=== PATIENT | female | born 1955 | race African-American/Black ===

== ENCOUNTER 2018-04-18 00:13 | Inpatient (IN) | payer OTHER ==
[2018-04-18] MEDS ORDERED: BISACODYL (EC) 5 MG TAB PO (01:30)
[2018-04-18] MEDS ORDERED: ONDANSETRON 4 MG INJ IV (01:30)
[2018-04-18] MEDS ORDERED: NACL 0.9% 3 ML SYG IV (01:30)
[2018-04-18] MEDS ORDERED: DOCUSATE SODIUM 100 MG CAP PO (01:30)
[2018-04-18 02:35] LABS: ADD MAN DIFF? NO
[2018-04-18 02:43] LABS: WHITE BLOOD COUNT 6.2 10^3/ul (4.8-10.8)
[2018-04-18 02:43] LABS: BASOPHILS % 0.5 % (0.0-2.0); EOSINOPHILS # 0.2 10^3/ul (0.0-0.5); EOSINOPHILS % 2.4 % (0.0-7.0); HEMATOCRIT 29.5 % (37.0-47.0); LYMPHOCYTES # 1.4 10^3/ul (0.8-2.9); LYMPHOCYTES % 23.2 % (15.0-51.0); MEAN CORPUSCULAR HEMOGLOBIN 22.6 pg (29.0-33.0); MEAN CORPUSCULAR HGB CONC 30.5 g/dl (32.0-37.0); MEAN CORPUSCULAR VOLUME 74.1 fl (82.0-101.0); MEAN PLATELET VOLUME 9.2 fl (7.4-10.4); MONOCYTE # 0.5 10^3/ul (0.3-0.9); MONOCYTES % 7.9 % (0.0-11.0); NEUTROPHIL # 4.1 10^3/ul (1.6-7.5); NEUTROPHILS % 65.5 % (39.0-77.0); PLATELET COUNT 230 10^3/UL (140-415); RED BLOOD COUNT 3.98 10^6/ul (4.20-5.40); RED CELL DISTRIBUTION WIDTH 19.4 % (11.5-14.5)
[2018-04-18 02:55] LABS: HEMOGLOBIN A1C 6.1 % (0-5.9)
[2018-04-18 03:06] LABS: ALANINE AMINOTRANSFERASE 24 IU/L (13-69); ALBUMIN/GLOBULIN RATIO 0.83; ALKALINE PHOSPHATASE 87 IU/L (42-121); ANION GAP 8 (8-16); ASPARTATE AMINO TRANSFERASE 26 IU/L (15-46); BILIRUBIN,INDIRECT 0.3 mg/dl (0-1.1); BILIRUBIN,TOTAL 0.3 mg/dl (0.2-1.3); BLOOD UREA NITROGEN 54 mg/dl (7-20); CALCIUM 8.8 mg/dl (8.4-10.2); CARBON DIOXIDE 26 mmol/L (21-31); CHLORIDE 111 mmol/L (97-110); CREATININE 3.23 mg/dl (0.44-1.00); GLUCOSE 97 mg/dl (70-220); SODIUM 141 mmol/L (135-144); TOTAL PROTEIN 6.6 g/dl (6.1-8.1)
[2018-04-18 03:07] LABS: MAGNESIUM 2.2 mg/dl (1.7-2.5)
[2018-04-18 03:10] LABS: ETHANOL < 10.0 mg/dl
[2018-04-18 04:02] LABS: IRON 36 ug/dl (35-150)
[2018-04-18 04:17] LABS: % IRON SATURATION 10 % SAT (22-52); TOTAL IRON BINDING CAPACITY 362 ug/dl (241-421)
[2018-04-18 04:39] LABS: FERRITIN 57.1 ng/ml (11.1-264.0)
[2018-04-18] MEDS: NIFEdipine (XL) 30 MG TAB PO ×2 (09:46→21:44)
[2018-04-18] MEDS: METOPROLOL (XL) 25 MG TAB PO ×2 (09:47→21:44)
[2018-04-19] MEDS: hydrALAzine 20 MG INJ IV (00:49)
[2018-04-19] MEDS: LORAZEPAM 2 MG INJ IV (02:06)
[2018-04-19 06:04] LABS: INR 1.03; PROTIME 13.6 Sec (11.9-14.9); PT RATIO 1.1
[2018-04-19 06:17] LABS: MAGNESIUM 2.4 mg/dl (1.7-2.5)
[2018-04-19 06:17] LABS: ANION GAP 11 (8-16); BLOOD UREA NITROGEN 59 mg/dl (7-20); CALCIUM 9.5 mg/dl (8.4-10.2); CARBON DIOXIDE 25 mmol/L (21-31); CHLORIDE 109 mmol/L (97-110); GLUCOSE 100 mg/dl (70-220); PHOSPHORUS 4.5 mg/dl (2.5-4.9); POTASSIUM 4.3 mmol/L (3.5-5.1); SODIUM 141 mmol/L (135-144)
[2018-04-19 08:25] LABS: ADD MAN DIFF? NO
[2018-04-19 08:27] LABS: ABNORMAL IP MESSAGE 1; BASOPHIL # 0.1 10^3/ul (0.0-0.1); BASOPHILS % 0.6 % (0.0-2.0); EOSINOPHILS # 0.2 10^3/ul (0.0-0.5); EOSINOPHILS % 1.9 % (0.0-7.0); HEMOGLOBIN 9.8 g/dl (12.0-16.0); LYMPHOCYTES # 1.3 10^3/ul (0.8-2.9); LYMPHOCYTES % 15.3 % (15.0-51.0); MEAN CORPUSCULAR HEMOGLOBIN 22.6 pg (29.0-33.0); MEAN CORPUSCULAR HGB CONC 29.7 g/dl (32.0-37.0); MEAN CORPUSCULAR VOLUME 76.2 fl (82.0-101.0); MEAN PLATELET VOLUME 10.9 fl (7.4-10.4); MONOCYTE # 0.7 10^3/ul (0.3-0.9); MONOCYTES % 7.8 % (0.0-11.0); NEUTROPHIL # 6.3 10^3/ul (1.6-7.5); NEUTROPHILS % 73.9 % (39.0-77.0); PLATELET COUNT 208 10^3/UL (140-415); RED BLOOD COUNT 4.33 10^6/ul (4.20-5.40)
[2018-04-19 08:27] LABS: WHITE BLOOD COUNT 8.5 10^3/ul (4.8-10.8)
[2018-04-19 08:51] LABS: POSITIVE DIFF @See below
[2018-04-19] MEDS ORDERED: LISINOPRIL 10 MG TAB PO (09:00)
[2018-04-19] MEDS: LISINOPRIL 10 MG TAB PO ×2 (09:33→22:23)
[2018-04-19] MEDS: NIFEdipine (XL) 30 MG TAB PO ×2 (09:33→22:23)
[2018-04-19] MEDS: METOPROLOL (XL) 25 MG TAB PO ×2 (09:34→22:23)
[2018-04-19] MEDS ORDERED: LOPERAMIDE HCL 1 MG/5 ML LIQUID (10 ML UD CUP) PO (14:00)
[2018-04-19] MEDS: LORAZEPAM 1 MG TAB PO ×2 (14:51→19:18)
[2018-04-19 22:55] LABS: ADD UMIC YES; UR ASCORBIC ACID NEGATIVE (NEGATIVE); UR BILIRUBIN (Dip) NEGATIVE (NEGATIVE); UR BLOOD (Dip) NEGATIVE (NEGATIVE); UR CLARITY CLEAR (CLEAR); UR COLOR YELLOW (YELLOW); UR GLUCOSE (Dip) NEGATIVE (NEGATIVE); UR KETONES (Dip) NEGATIVE (NEGATIVE); UR LEUKOCYTE ESTERASE (Dip) NEGATIVE Leu/ul (NEGATIVE); UR NITRITE (Dip) NEGATIVE (NEGATIVE); UR RBC 1 /HPF (0-5); UR SPECIFIC GRAVITY (Dip) 1.014 (1.003-1.030); UR TOTAL PROTEIN (Dip) 2+ mg/dl (NEGATIVE); UR UROBILINOGEN (Dip) NEGATIVE (NEGATIVE); UR WBC 0 /HPF (0-5)
[2018-04-19 23:11] LABS: AMPHETAMINE/METHAMPHETAMINE Negative (NEGATIVE); BARBITURATES Negative (NEGATIVE); BENZODIAZEPINES Negative (NEGATIVE); CANNABINOIDS Negative (NEGATIVE); OPIATES Negative (NEGATIVE)
[2018-04-19 23:13] LABS: COCAINE Positive (NEGATIVE)
[2018-04-19 23:15] LABS: CREATININE,URINE RANDOM 83.06 mg/dl (20-320)
[2018-04-19 23:16] LABS: PROTEIN/CREAT RATIO 3.37 RATIO
[2018-04-20 07:47] LABS: ADD MAN DIFF? NO
[2018-04-20 07:53] LABS: BASOPHIL # 0.1 10^3/ul (0.0-0.1); BASOPHILS % 0.7 % (0.0-2.0); EOSINOPHILS # 0.2 10^3/ul (0.0-0.5); HEMOGLOBIN 9.9 g/dl (12.0-16.0); LYMPHOCYTES # 1.2 10^3/ul (0.8-2.9); LYMPHOCYTES % 16.9 % (15.0-51.0); MEAN CORPUSCULAR HEMOGLOBIN 22.7 pg (29.0-33.0); MEAN CORPUSCULAR VOLUME 75.7 fl (82.0-101.0); MEAN PLATELET VOLUME 9.7 fl (7.4-10.4); MONOCYTE # 0.7 10^3/ul (0.3-0.9); MONOCYTES % 8.9 % (0.0-11.0); NEUTROPHIL # 5.1 10^3/ul (1.6-7.5); PLATELET COUNT 293 10^3/UL (140-415); RED BLOOD COUNT 4.36 10^6/ul (4.20-5.40); RED CELL DISTRIBUTION WIDTH 20.5 % (11.5-14.5)
[2018-04-20 07:53] LABS: WHITE BLOOD COUNT 7.3 10^3/ul (4.8-10.8)
[2018-04-20 08:16] LABS: MAGNESIUM 2.3 mg/dl (1.7-2.5)
[2018-04-20 08:17] LABS: ANION GAP 11 (8-16); BLOOD UREA NITROGEN 52 mg/dl (7-20); CALCIUM 9.1 mg/dl (8.4-10.2); CARBON DIOXIDE 25 mmol/L (21-31); CHLORIDE 110 mmol/L (97-110); CREATININE 2.96 mg/dl (0.44-1.00); SODIUM 142 mmol/L (135-144)
[2018-04-20 08:34] LABS: GLUCOSE 88 mg/dl (70-220)
[2018-04-20] MEDS: LORAZEPAM 1 MG TAB PO ×2 (08:42→20:34)
[2018-04-20] MEDS: METOPROLOL (XL) 25 MG TAB PO ×2 (08:42→20:33)
[2018-04-20] MEDS: NIFEdipine (XL) 30 MG TAB PO (08:43)
[2018-04-20] MEDS: ENOXAPARIN 30 MG/0.3 ML SYG SC (08:45)
[2018-04-20] MEDS: LISINOPRIL 20 MG TAB PO ×2 (08:47→20:32)
[2018-04-20 13:04] LABS: OCCULT BLOOD STOOL NEGATIVE (NEGATIVE)
[2018-04-20] MEDS: hydrALAzine 20 MG INJ IV (15:57)
[2018-04-20] MEDS: LORAZEPAM 2 MG INJ IV (17:43)
[2018-04-20] MEDS: NIFEdipine (XL) 60 MG TAB PO ×2 (17:43→23:08)
[2018-04-20] MEDS: ACETAMINOPHEN 325 MG TAB PO (20:33)
[2018-04-21 06:47] LABS: ADD MAN DIFF? NO
[2018-04-21 06:52] LABS: BASOPHIL # 0.1 10^3/ul (0.0-0.1); BASOPHILS % 0.8 % (0.0-2.0); EOSINOPHILS # 0.2 10^3/ul (0.0-0.5); EOSINOPHILS % 2.1 % (0.0-7.0); HEMATOCRIT 35.1 % (37.0-47.0); HEMOGLOBIN 10.6 g/dl (12.0-16.0); LYMPHOCYTES # 1.1 10^3/ul (0.8-2.9); LYMPHOCYTES % 14.5 % (15.0-51.0); MEAN CORPUSCULAR HEMOGLOBIN 22.8 pg (29.0-33.0); MEAN CORPUSCULAR HGB CONC 30.2 g/dl (32.0-37.0); MEAN CORPUSCULAR VOLUME 75.5 fl (82.0-101.0); MONOCYTE # 0.5 10^3/ul (0.3-0.9); MONOCYTES % 6.9 % (0.0-11.0); NEUTROPHIL # 5.9 10^3/ul (1.6-7.5); NEUTROPHILS % 75.2 % (39.0-77.0); PLATELET COUNT 264 10^3/UL (140-415); RED BLOOD COUNT 4.65 10^6/ul (4.20-5.40); RED CELL DISTRIBUTION WIDTH 20.9 % (11.5-14.5)
[2018-04-21 06:52] LABS: WHITE BLOOD COUNT 7.8 10^3/ul (4.8-10.8)
[2018-04-21 07:03] LABS: MAGNESIUM 2.2 mg/dl (1.7-2.5)
[2018-04-21 07:06] LABS: ANION GAP 13 (8-16); BLOOD UREA NITROGEN 51 mg/dl (7-20); CALCIUM 9.5 mg/dl (8.4-10.2); CARBON DIOXIDE 22 mmol/L (21-31); CHLORIDE 112 mmol/L (97-110); CREATININE 2.66 mg/dl (0.44-1.00); GLUCOSE 151 mg/dl (70-220); POTASSIUM 4.2 mmol/L (3.5-5.1); SODIUM 143 mmol/L (135-144)
[2018-04-21 07:34] LABS: HEPATITIS B SURFACE ANTIGEN NEGATIVE (NEGATIVE)
[2018-04-21 07:51] LABS: HEPATITIS C VIRAL ANTIBODY REACTIVE (NEGATIVE)
[2018-04-21 07:52] LABS: ERYTHROCYTE SEDIMENTATION RATE 54 mm/Hr (0-30)
[2018-04-21 08:19] LABS: COMPLEMENT C3 113 mg/dl (88-165); COMPLEMENT C4 20 mg/dl (14-44)
[2018-04-21] MEDS: NIFEdipine (XL) 60 MG TAB PO (10:00)
[2018-04-21] MEDS: METOPROLOL (XL) 25 MG TAB PO (10:00)
[2018-04-21] MEDS: LORAZEPAM 1 MG TAB PO (10:00)
[2018-04-21] MEDS: LISINOPRIL 20 MG TAB PO (10:01)
[2018-04-21] MEDS: ENOXAPARIN 30 MG/0.3 ML SYG SC (10:03)
[2018-04-21] MEDS: LORAZEPAM 2 MG INJ IV (14:10)
[2018-04-21] MEDS: hydrALAzine 20 MG INJ IV (15:26)
[2018-04-22 12:56] LABS: MYELOPEROXIDASE ANTIBODY <1.0 AI; PROTEINASE-3 ANTIBODY <1.0 AI
[2018-04-24 18:25] LABS: ANA SCREEN POSITIVE (NEGATIVE)
[2018-04-24 19:57] LABS: ANA PATTERN HOMOGENEOUS
[2018-04-25 18:21] LABS: COMPLEMENT, TOTAL (CH50) 54 U/mL (31-60)
== END 2018-04-21 17:45 | disposition home or self-care (01) | DRG 305 ==
LOC: 6WM 00:13 → REC 04-19 13:44 → 6WM 04-19 14:02 → 2NE 04-19 16:01
DX: I16.0 Hypertensive urgency (principal); N17.9 Acute kidney failure, unspecified; I50.9 Heart failure, unspecified; I13.0 Hypertensive heart and chronic kidney disease with heart failure and stage 1 through stage 4 chronic kidney disease, or unspecified chronic kidney disease; N18.9 Chronic kidney disease, unspecified; B18.2 Chronic viral hepatitis C; F17.200 Nicotine dependence, unspecified, uncomplicated; M54.30 Sciatica, unspecified side; D63.1 Anemia in chronic kidney disease; E61.1 Iron deficiency; F14.10 Cocaine abuse, uncomplicated; H54.7 Unspecified visual loss; Z91.14 Patient's other noncompliance with medication regimen; Z79.82 Long term (current) use of aspirin
CPT/HCPCS: 70450; 71046; 80048; 80053; 80307; 81001; 81003; 82270; 82570; 82728; 83036; 83540; 83735; 84100; 84443; 85025; 85610; 85651; 86021; 86038; 86160; 86162; 86320; 86803; 87081; 87340; 93005; 93306; 93976; G0378

== ENCOUNTER 2018-07-09 07:00 | Inpatient (IN) | payer OTHER ==
[2018-07-09] MEDS: ALBUTEROL 0.5% (NEB) 2.5 MG/0.5 ML AMP INH (07:18)
[2018-07-09] MEDS: IPRATROPIUM (NEB) 0.5 MG/2.5 ML AMP INH (07:19)
[2018-07-09 07:27] LABS: ADD MAN DIFF? NO
[2018-07-09] MEDS: METHYLPREDNISOLONE 125 MG INJ IV (07:27)
[2018-07-09] MEDS: MAGNESIUM SULFATE 2 GM/50 ML 50 ML IVPB (07:29)
[2018-07-09] MEDS: ASPIRIN 81 MG TAB PO (07:29)
[2018-07-09] MEDS: FUROSEMIDE 40 MG INJ IV ×2 (07:29→18:33)
[2018-07-09 07:42] LABS: BASOPHIL # 0.1 10^3/ul (0.0-0.1); BASOPHILS % 1.1 % (0.0-2.0); EOSINOPHILS # 0.2 10^3/ul (0.0-0.5); EOSINOPHILS % 2.3 % (0.0-7.0); HEMATOCRIT 33.4 % (37.0-47.0); HEMOGLOBIN 9.7 g/dl (12.0-16.0); LYMPHOCYTES # 1.1 10^3/ul (0.8-2.9); LYMPHOCYTES % 15.7 % (15.0-51.0); MEAN CORPUSCULAR HEMOGLOBIN 23.5 pg (29.0-33.0); MEAN CORPUSCULAR VOLUME 81.1 fl (82.0-101.0); MONOCYTE # 0.6 10^3/ul (0.3-0.9); MONOCYTES % 8.3 % (0.0-11.0); NEUTROPHILS % 72.2 % (39.0-77.0); PLATELET COUNT 229 10^3/UL (140-415); RED BLOOD COUNT 4.12 10^6/ul (4.20-5.40); RED CELL DISTRIBUTION WIDTH 20.5 % (11.5-14.5)
[2018-07-09 07:54] LABS: INR 1.13; PROTIME 14.7 Sec (11.9-14.9); PT RATIO 1.1
[2018-07-09 07:55] LABS: PARTIAL THROMBOPLASTIN TIME 45.1 Sec (23.0-35.0)
[2018-07-09 08:03] LABS: ANION GAP 12 (5-13); BLOOD UREA NITROGEN 46 mg/dl (7-20); CALCIUM 9.1 mg/dl (8.4-10.2); CARBON DIOXIDE 19 mmol/L (21-31); CHLORIDE 116 mmol/L (97-110); CREATININE 2.47 mg/dl (0.44-1.00); Estimated GFR 24 mL/min (>60); GLUCOSE 90 mg/dl (70-220); POTASSIUM 4.9 mmol/L (3.5-5.1); SODIUM 147 mmol/L (135-144)
[2018-07-09 08:14] LABS: B-TYPE NATRIURETIC PEPTIDE 5140 PG/ML (0-125); TROPONIN-I 0.017 ng/ml (0.000-0.120)
[2018-07-09] MEDS ORDERED: ONDANSETRON 4 MG INJ IV ×2 (08:30→09:00)
[2018-07-09] MEDS ORDERED: ACETAMINOPHEN 325 MG TAB PO ×2 (08:30→09:00)
[2018-07-09] MEDS ORDERED: ALBUTEROL/IPRATROPIUM (NEB) 3 ML AMP HHN (09:00)
[2018-07-09] MEDS: BUDESONIDE (NEB) 0.5MG/2ML AMP HHN ×2 (09:00→20:22)
[2018-07-09] MEDS ORDERED: NACL 0.9% 3 ML SYG IV (09:00)
[2018-07-09] MEDS ORDERED: HYDROCODONE/APAP (5/325) TAB PO (09:00)
[2018-07-09 10:04] LABS: AMPHETAMINE/METHAMPHETAMINE Negative (NEGATIVE); BARBITURATES Negative (NEGATIVE); BENZODIAZEPINES Negative (NEGATIVE); CANNABINOIDS Negative (NEGATIVE); COCAINE Positive (NEGATIVE); OPIATES Negative (NEGATIVE)
[2018-07-09] MEDS: LEVOFLOXACIN 500MG/D5W (PMX) 100 ML IVPB (10:06)
[2018-07-09] MEDS: NIFEdipine (XL) 30 MG TAB PO ×2 (10:06→21:33)
[2018-07-09] MEDS: POTASSIUM CHLORIDE (SR) 10 MEQ TAB PO (12:26)
[2018-07-09] MEDS: METOPROLOL (XL) 25 MG TAB PO ×2 (12:28→21:33)
[2018-07-09] MEDS: ENALAPRIL 2.5 MG TAB PO ×2 (12:29→21:00)
[2018-07-09] MEDS: hydrALAzine 20 MG INJ IV (15:39)
[2018-07-09 17:21] LABS: ADD UMIC YES; UR ASCORBIC ACID NEGATIVE (NEGATIVE); UR BACTERIA FEW /HPF (NONE SEEN); UR BILIRUBIN (Dip) NEGATIVE (NEGATIVE); UR BLOOD (Dip) 1+ mg/dL (NEGATIVE); UR CLARITY SLIGHTLY CLOUDY (CLEAR); UR COLOR YELLOW (YELLOW); UR GLUCOSE (Dip) NEGATIVE (NEGATIVE); UR KETONES (Dip) NEGATIVE (NEGATIVE); UR LEUKOCYTE ESTERASE (Dip) 3+ Leu/ul (NEGATIVE); UR NITRITE (Dip) NEGATIVE (NEGATIVE); UR RBC 8 /HPF (0-5); UR SQUAMOUS EPITHELIAL CELL MODERATE /HPF (FEW); UR TOTAL PROTEIN (Dip) 2+ mg/dl (NEGATIVE); UR UROBILINOGEN (Dip) NEGATIVE (NEGATIVE); UR WBC 4 /HPF (0-5)
[2018-07-09 17:31] LABS: CREATININE,URINE RANDOM 35.06 mg/dl (20-320); PROTEIN/CREAT RATIO 2.13 RATIO
[2018-07-09 17:32] LABS: CREATINE KINASE 47 IU/L (23-200)
[2018-07-09 17:45] LABS: CK INDEX 2.5; CK-MB 1.19 ng/ml (0.0-2.4); TROPONIN-I < 0.012 ng/ml (0.000-0.120)
[2018-07-09] MEDS ORDERED: FUROSEMIDE 40 MG INJ IV (18:00)
[2018-07-09] MEDS: ALBUTEROL/IPRATROPIUM (NEB) 3 ML AMP HHN (20:22)
[2018-07-09] MEDS: METHYLPREDNISOLONE 40 MG INJ IV (21:32)
[2018-07-09 23:17] LABS: CREATINE KINASE 41 IU/L (23-200)
[2018-07-09 23:32] LABS: CK INDEX 2.4; TROPONIN-I 0.014 ng/ml (0.000-0.120)
[2018-07-10 05:30] LABS: ADD MAN DIFF? NO
[2018-07-10] MEDS: hydrALAzine 20 MG INJ IV (05:32)
[2018-07-10] MEDS: PANTOPRAZOLE (EC) 40 MG TAB PO (05:32)
[2018-07-10 05:38] LABS: WHITE BLOOD COUNT 7.1 10^3/ul (4.8-10.8)
[2018-07-10 05:38] LABS: ABNORMAL IP MESSAGE 1; BASOPHILS % 0.1 % (0.0-2.0); HEMATOCRIT 29.6 % (37.0-47.0); LYMPHOCYTES # 0.5 10^3/ul (0.8-2.9); LYMPHOCYTES % 7.3 % (15.0-51.0); MEAN CORPUSCULAR HEMOGLOBIN 23.9 pg (29.0-33.0); MEAN CORPUSCULAR HGB CONC 30.4 g/dl (32.0-37.0); MEAN CORPUSCULAR VOLUME 78.5 fl (82.0-101.0); MEAN PLATELET VOLUME 9.4 fl (7.4-10.4); MONOCYTE # 0.3 10^3/ul (0.3-0.9); MONOCYTES % 4.5 % (0.0-11.0); NEUTROPHIL # 6.2 10^3/ul (1.6-7.5); NEUTROPHILS % 87.5 % (39.0-77.0); PLATELET COUNT 286 10^3/UL (140-415); RED BLOOD COUNT 3.77 10^6/ul (4.20-5.40); RED CELL DISTRIBUTION WIDTH 19.3 % (11.5-14.5)
[2018-07-10 05:49] LABS: HEMOGLOBIN A1C 5.9 % (0-5.9)
[2018-07-10 05:59] LABS: IRON 29 ug/dl (35-150)
[2018-07-10 06:01] LABS: PHOSPHORUS 4.7 mg/dl (2.5-4.9)
[2018-07-10 06:06] LABS: ALANINE AMINOTRANSFERASE 14 IU/L (13-69); ALBUMIN 3.1 g/dl (3.3-4.9); ALBUMIN/GLOBULIN RATIO 0.83; ALKALINE PHOSPHATASE 97 IU/L (42-121); ANION GAP 13 (5-13); ASPARTATE AMINO TRANSFERASE 18 IU/L (15-46); BLOOD UREA NITROGEN 49 mg/dl (7-20); CALCIUM 9.1 mg/dl (8.4-10.2); CARBON DIOXIDE 20 mmol/L (21-31); CHLORIDE 113 mmol/L (97-110); CHOL/HDL RATIO 4.8 RATIO; CHOLESTEROL 218 mg/dl (100-200); CREATININE 2.66 mg/dl (0.44-1.00); Estimated GFR 22 mL/min (>60); GLUCOSE 134 mg/dl (70-220); HDL CHOLESTEROL 45 mg/dl (35-98); LDL CHOLESTEROL,CALCULATED 160 mg/dl; MAGNESIUM 2.2 mg/dl (1.7-2.5); POTASSIUM 4.5 mmol/L (3.5-5.1); SODIUM 146 mmol/L (135-144); TOTAL PROTEIN 6.8 g/dl (6.1-8.1); TRIGLYCERIDES 63 mg/dl (0-149)
[2018-07-10 06:08] LABS: POSITIVE DIFF @See below
[2018-07-10 06:09] LABS: % IRON SATURATION 9 % SAT (22-52); TOTAL IRON BINDING CAPACITY 324 ug/dl (241-421)
[2018-07-10] MEDS: ALBUTEROL/IPRATROPIUM (NEB) 3 ML AMP HHN ×3 (07:42→20:00)
[2018-07-10] MEDS: BUDESONIDE (NEB) 0.5MG/2ML AMP HHN ×2 (07:51→20:00)
[2018-07-10] MEDS: LEVOFLOXACIN 500MG/D5W (PMX) 100 ML IVPB (08:16)
[2018-07-10] MEDS: METOPROLOL (XL) 25 MG TAB PO ×2 (08:17→21:44)
[2018-07-10] MEDS: METHYLPREDNISOLONE 40 MG INJ IV ×2 (08:17→21:44)
[2018-07-10] MEDS: NIFEdipine (XL) 60 MG TAB PO (08:17)
[2018-07-10] MEDS: ENALAPRIL 5 MG TAB PO (10:05)
[2018-07-10] MEDS: SOD FERRIC GLUC COMPLX 125 MG in SOD CHLORIDE 0.9% 100 ML IVPB (12:32)
[2018-07-10] MEDS: LIDOCAINE 1% (MPF) 5 ML VIAL (14:01)
[2018-07-10 14:23] LABS: FLD MN% 85.5 %; FLD PMN% 14.5 %; FLD RBC 2000 /uL; FLD WBC 110 /cmm
[2018-07-10 14:27] LABS: FLD TYPE THORACENTHESIS
[2018-07-10 14:27] LABS: FLD CLARITY HAZY; FLD COLOR YELLOW
[2018-07-10 14:47] LABS: FLUID GLUCOSE 128 mg/dl; FLUID TOTAL PROTEIN 2.2 g/dl; FLUID TYPE THORACENTESIS FLUID
[2018-07-10 14:52] LABS: FLUID TYPE THORACENTESIS FLUID
[2018-07-10 14:54] LABS: FLUID LD 216 U/L
[2018-07-10] MEDS: EPOETIN 10000 UNITS/ML (NON ESRD/NON ONCOLOGY) SC (17:07)
[2018-07-10] MEDS: NIFEdipine (XL) 30 MG TAB PO (21:44)
[2018-07-11 05:40] LABS: ADD MAN DIFF? NO
[2018-07-11 05:52] LABS: WHITE BLOOD COUNT 10.3 10^3/ul (4.8-10.8)
[2018-07-11 05:52] LABS: BASOPHILS % 0.2 % (0.0-2.0); HEMATOCRIT 33.2 % (37.0-47.0); HEMOGLOBIN 9.8 g/dl (12.0-16.0); LYMPHOCYTES # 0.6 10^3/ul (0.8-2.9); MEAN CORPUSCULAR HEMOGLOBIN 23.7 pg (29.0-33.0); MEAN CORPUSCULAR HGB CONC 29.5 g/dl (32.0-37.0); MEAN CORPUSCULAR VOLUME 80.4 fl (82.0-101.0); MEAN PLATELET VOLUME 9.8 fl (7.4-10.4); MONOCYTE # 0.3 10^3/ul (0.3-0.9); MONOCYTES % 3.1 % (0.0-11.0); NEUTROPHIL # 9.3 10^3/ul (1.6-7.5); NEUTROPHILS % 90.1 % (39.0-77.0); PLATELET COUNT 267 10^3/UL (140-415); RED BLOOD COUNT 4.13 10^6/ul (4.20-5.40); RED CELL DISTRIBUTION WIDTH 19.5 % (11.5-14.5)
[2018-07-11] MEDS: PANTOPRAZOLE (EC) 40 MG TAB PO (06:14)
[2018-07-11 06:19] LABS: ANION GAP 13 (5-13); BLOOD UREA NITROGEN 56 mg/dl (7-20); CARBON DIOXIDE 20 mmol/L (21-31); CHLORIDE 112 mmol/L (97-110); CREATININE 2.76 mg/dl (0.44-1.00); Estimated GFR 21 mL/min (>60); GLUCOSE 118 mg/dl (70-220); MAGNESIUM 2.2 mg/dl (1.7-2.5); PHOSPHORUS 4.6 mg/dl (2.5-4.9); SODIUM 145 mmol/L (135-144)
[2018-07-11] MEDS: ALBUTEROL/IPRATROPIUM (NEB) 3 ML AMP HHN (07:49)
[2018-07-11] MEDS: BUDESONIDE (NEB) 0.5MG/2ML AMP HHN (07:49)
[2018-07-11] MEDS ORDERED: LORAZEPAM 4 MG/ML VIAL IV (08:30)
[2018-07-11] MEDS: METHYLPREDNISOLONE 40 MG INJ IV (08:31)
[2018-07-11] MEDS: NIFEdipine (XL) 60 MG TAB PO (08:31)
[2018-07-11] MEDS: LEVOFLOXACIN 500MG/D5W (PMX) 100 ML IVPB (08:31)
[2018-07-11] MEDS: METOPROLOL (XL) 25 MG TAB PO (08:32)
[2018-07-11] MEDS: LISINOPRIL 20 MG TAB PO (08:32)
[2018-07-11] MEDS ORDERED: METOPROLOL (XL) 50 MG TAB PO (09:00)
[2018-07-11] MEDS ORDERED: NIFEdipine (XL) 60 MG TAB PO (09:00)
[2018-07-11 11:46] LABS: OCCULT BLOOD STOOL POSITIVE (NEGATIVE)
[2018-07-11] MEDS ORDERED: DOXAZOSIN 2 MG TAB PO (21:00)
== END 2018-07-11 11:40 | disposition left against medical advice (07) | DRG 189 ==
LOC: E/R 07:00 → 6WM 08:28
PROC: 0W993ZZ Drainage of Right Pleural Cavity, Percutaneous Approach (ICD-10-PCS; principal; 2018-07-10)
DX: J96.01 Acute respiratory failure with hypoxia (principal); J44.1 Chronic obstructive pulmonary disease with (acute) exacerbation; J90 Pleural effusion, not elsewhere classified; I16.0 Hypertensive urgency; I10 Essential (primary) hypertension; F14.90 Cocaine use, unspecified, uncomplicated; B19.20 Unspecified viral hepatitis C without hepatic coma; I70.1 Atherosclerosis of renal artery; I12.9 Hypertensive chronic kidney disease with stage 1 through stage 4 chronic kidney disease, or unspecified chronic kidney disease; N18.9 Chronic kidney disease, unspecified; D50.9 Iron deficiency anemia, unspecified; Z59.0 Homelessness; Z87.891 Personal history of nicotine dependence; F40.240 Claustrophobia
CPT/HCPCS: 36415; 71045; 74181; 76604; 76942; 80048; 80053; 80061; 80076; 80307; 81001; 81003; 82270; 82550; 82553; 82570; 82728; 82945; 83036; 83540; 83615; 83735; 83880; 84100; 84157; 84443; 84484; 85025; 85610; 85730; 87040; 87070; 87102; 87116; 88104; 88107; 88305; 89051; 93005; 94640; 94664; 96365; 96375; 99285-25

== ENCOUNTER 2018-08-31 12:23 | Inpatient (IN) | payer OTHER ==
[2018-08-31] MEDS ORDERED: MAGNESIUM HYDROXIDE 30ML CUP PO (13:30)
[2018-08-31] MEDS ORDERED: NACL 0.9% 3 ML SYG IV (13:30)
[2018-08-31] MEDS ORDERED: DOCUSATE SODIUM 100 MG CAP PO (13:30)
[2018-08-31 15:01] LABS: INR 1.05; PROTIME 13.8 Sec (11.9-14.9); PT RATIO 1.1
[2018-08-31 15:03] LABS: PARTIAL THROMBOPLASTIN TIME 44.9 Sec (23.0-35.0)
[2018-08-31 15:05] LABS: FREE T4 (FREE THYROXINE) 1.23 ng/dl (0.78-2.44)
[2018-08-31] MEDS: LORAZEPAM 2 MG INJ IV (15:43)
[2018-08-31] MEDS: ALBUTEROL/IPRATROPIUM (NEB) 3 ML AMP HHN (15:47)
[2018-08-31 16:05] LABS: ADD UMIC YES; UR ASCORBIC ACID NEGATIVE (NEGATIVE); UR BILIRUBIN (Dip) NEGATIVE (NEGATIVE); UR BLOOD (Dip) 1+ mg/dL (NEGATIVE); UR CLARITY CLEAR (CLEAR); UR COLOR STRAW (YELLOW); UR GLUCOSE (Dip) NEGATIVE (NEGATIVE); UR KETONES (Dip) NEGATIVE (NEGATIVE); UR LEUKOCYTE ESTERASE (Dip) NEGATIVE Leu/ul (NEGATIVE); UR NITRITE (Dip) NEGATIVE (NEGATIVE); UR RBC 4 /HPF (0-5); UR SPECIFIC GRAVITY (Dip) 1.009 (1.003-1.030); UR SQUAMOUS EPITHELIAL CELL FEW /HPF (FEW); UR TOTAL PROTEIN (Dip) 1+ mg/dl (NEGATIVE); UR UROBILINOGEN (Dip) NEGATIVE (NEGATIVE); UR WBC 1 /HPF (0-5)
[2018-08-31] MEDS: ISOSORBIDE MONONITRATE(SR)60 MG TAB PO (18:51)
[2018-08-31] MEDS: NIFEdipine (XL) 60 MG TAB PO (18:51)
[2018-08-31 19:08] LABS: SODIUM,URINE RANDOM 117 mmol/L (30-90)
[2018-08-31] MEDS: CLONIDINE 0.3 MG/24 HR PATCH TRANSDERM (20:44)
[2018-08-31] MEDS: HEPARIN 5,000 UNIT/1 ML VIAL SC (20:48)
[2018-09-01] MEDS: NITROGLYCERIN (SL) 0.4 MG TAB SL (03:53)
[2018-09-01] MEDS: PANTOPRAZOLE (EC) 40 MG TAB PO (05:24)
[2018-09-01 08:27] LABS: ADD MAN DIFF? NO
[2018-09-01 08:33] LABS: BASOPHILS % 0.5 % (0.0-2.0); EOSINOPHILS # 0.1 10^3/ul (0.0-0.5); EOSINOPHILS % 1.9 % (0.0-7.0); HEMATOCRIT 28.3 % (37.0-47.0); HEMOGLOBIN 8.5 g/dl (12.0-16.0); LYMPHOCYTES # 0.9 10^3/ul (0.8-2.9); LYMPHOCYTES % 13.5 % (15.0-51.0); MEAN CORPUSCULAR HEMOGLOBIN 23.4 pg (29.0-33.0); MEAN PLATELET VOLUME 9.6 fl (7.4-10.4); MONOCYTE # 0.5 10^3/ul (0.3-0.9); MONOCYTES % 7.3 % (0.0-11.0); NEUTROPHIL # 4.9 10^3/ul (1.6-7.5); NEUTROPHILS % 76.3 % (39.0-77.0); PLATELET COUNT 180 10^3/UL (140-415); RED BLOOD COUNT 3.63 10^6/ul (4.20-5.40); RED CELL DISTRIBUTION WIDTH 18.2 % (11.5-14.5)
[2018-09-01 08:33] LABS: WHITE BLOOD COUNT 6.5 10^3/ul (4.8-10.8)
[2018-09-01] MEDS ORDERED: FUROSEMIDE 40 MG INJ IV (09:00)
[2018-09-01 09:01] LABS: ANION GAP 10 (5-13); BLOOD UREA NITROGEN 67 mg/dl (7-20); CALCIUM 8.4 mg/dl (8.4-10.2); CARBON DIOXIDE 21 mmol/L (21-31); CHLORIDE 110 mmol/L (97-110); CHOL/HDL RATIO 3.8 RATIO; CHOLESTEROL 166 mg/dl (100-200); CREATININE 3.67 mg/dl (0.44-1.00); Estimated GFR 15 mL/min (>60); GLUCOSE 100 mg/dl (70-220); HDL CHOLESTEROL 43 mg/dl (35-98); LDL CHOLESTEROL,CALCULATED 105 mg/dl; PHOSPHORUS 5.7 mg/dl (2.5-4.9); POTASSIUM 4.1 mmol/L (3.5-5.1); SODIUM 141 mmol/L (135-144); TRIGLYCERIDES 88 mg/dl (0-149)
[2018-09-01 09:20] LABS: HEMOGLOBIN A1C 5.9 % (0-5.9)
[2018-09-01] MEDS: LEVOFLOXACIN 750MG/D5W (PMX) 150 ML IVPB (09:20)
[2018-09-01] MEDS: NIFEdipine (XL) 60 MG TAB PO (09:21)
[2018-09-01] MEDS: FUROSEMIDE 40 MG INJ IV (09:21)
[2018-09-01] MEDS: ISOSORBIDE MONONITRATE(SR)60 MG TAB PO (09:21)
[2018-09-01] MEDS: HEPARIN 5,000 UNIT/1 ML VIAL SC ×2 (09:24→21:24)
[2018-09-01] MEDS: LORAZEPAM 2 MG INJ IV (11:29)
[2018-09-01] MEDS: ONDANSETRON 4 MG INJ IV (16:37)
[2018-09-01] MEDS: CALCIUM ACETATE 667 MG CAP PO (18:06)
[2018-09-02] MEDS: PANTOPRAZOLE (EC) 40 MG TAB PO (06:05)
[2018-09-02 06:42] LABS: ADD MAN DIFF? NO
[2018-09-02 06:49] LABS: WHITE BLOOD COUNT 6.5 10^3/ul (4.8-10.8)
[2018-09-02 06:49] LABS: BASOPHILS % 0.3 % (0.0-2.0); EOSINOPHILS % 0.2 % (0.0-7.0); HEMOGLOBIN 8.7 g/dl (12.0-16.0); LYMPHOCYTES # 0.7 10^3/ul (0.8-2.9); LYMPHOCYTES % 10.5 % (15.0-51.0); MEAN CORPUSCULAR HEMOGLOBIN 23.5 pg (29.0-33.0); MEAN CORPUSCULAR VOLUME 78.4 fl (82.0-101.0); MEAN PLATELET VOLUME 10.5 fl (7.4-10.4); MONOCYTE # 0.5 10^3/ul (0.3-0.9); MONOCYTES % 8.3 % (0.0-11.0); NEUTROPHIL # 5.2 10^3/ul (1.6-7.5); NEUTROPHILS % 80.1 % (39.0-77.0); PLATELET COUNT 213 10^3/UL (140-415); RED CELL DISTRIBUTION WIDTH 18.2 % (11.5-14.5)
[2018-09-02 07:56] LABS: ANION GAP 8 (5-13); BLOOD UREA NITROGEN 81 mg/dl (7-20); CALCIUM 8.7 mg/dl (8.4-10.2); CARBON DIOXIDE 21 mmol/L (21-31); CHLORIDE 110 mmol/L (97-110); CREATININE 4.81 mg/dl (0.44-1.00); Estimated GFR 11 mL/min (>60); GLUCOSE 110 mg/dl (70-220); POTASSIUM 4.4 mmol/L (3.5-5.1); SODIUM 139 mmol/L (135-144)
[2018-09-02] MEDS: CALCIUM ACETATE 667 MG CAP PO ×3 (09:00→19:21)
[2018-09-02] MEDS: ISOSORBIDE MONONITRATE(SR)60 MG TAB PO (09:00)
[2018-09-02] MEDS: NIFEdipine (XL) 60 MG TAB PO (09:00)
[2018-09-02] MEDS: HEPARIN 5,000 UNIT/1 ML VIAL SC ×2 (09:07→21:34)
[2018-09-02] MEDS: ONDANSETRON 4 MG INJ IV ×2 (09:53→19:38)
[2018-09-02 19:08] LABS: CREATININE,URINE RANDOM 133.88 mg/dl (20-320); PROTEIN/CREAT RATIO 0.38 RATIO
[2018-09-02 19:10] LABS: CREATININE,URINE RANDOM 131.72 mg/dl (20-320)
[2018-09-02 19:11] LABS: SODIUM,URINE RANDOM < 13 mmol/L (30-90)
[2018-09-03] MEDS: LORAZEPAM 2 MG INJ IV ×2 (01:54→18:27)
[2018-09-03 05:08] LABS: ADD MAN DIFF? NO
[2018-09-03 05:17] LABS: WHITE BLOOD COUNT 5.2 10^3/ul (4.8-10.8)
[2018-09-03 05:17] LABS: BASOPHILS % 0.6 % (0.0-2.0); EOSINOPHILS # 0.1 10^3/ul (0.0-0.5); HEMOGLOBIN 8.4 g/dl (12.0-16.0); LYMPHOCYTES % 18.3 % (15.0-51.0); MEAN CORPUSCULAR HEMOGLOBIN 23.1 pg (29.0-33.0); MEAN CORPUSCULAR VOLUME 76.9 fl (82.0-101.0); MEAN PLATELET VOLUME 10.3 fl (7.4-10.4); MONOCYTE # 0.4 10^3/ul (0.3-0.9); MONOCYTES % 7.7 % (0.0-11.0); NEUTROPHIL # 3.7 10^3/ul (1.6-7.5); NEUTROPHILS % 71.8 % (39.0-77.0); PLATELET COUNT 240 10^3/UL (140-415); RED BLOOD COUNT 3.64 10^6/ul (4.20-5.40); RED CELL DISTRIBUTION WIDTH 18.1 % (11.5-14.5)
[2018-09-03 05:35] LABS: IRON 23 ug/dl (35-150)
[2018-09-03 05:43] LABS: ANION GAP 16 (5-13); BLOOD UREA NITROGEN 81 mg/dl (7-20); CALCIUM 8.2 mg/dl (8.4-10.2); CARBON DIOXIDE 20 mmol/L (21-31); CHLORIDE 104 mmol/L (97-110); Estimated GFR 10 mL/min (>60); GLUCOSE 98 mg/dl (70-220); POTASSIUM 4.5 mmol/L (3.5-5.1); SODIUM 140 mmol/L (135-144)
[2018-09-03 05:44] LABS: % IRON SATURATION 7 % SAT (22-52); TOTAL IRON BINDING CAPACITY 313 ug/dl (241-421)
[2018-09-03] MEDS: PANTOPRAZOLE (EC) 40 MG TAB PO ×2 (06:00→06:37)
[2018-09-03] MEDS: CALCIUM ACETATE 667 MG CAP PO ×3 (09:33→18:24)
[2018-09-03] MEDS: HEPARIN 5,000 UNIT/1 ML VIAL SC ×2 (09:36→21:13)
[2018-09-03] MEDS: NIFEdipine (XL) 30 MG TAB PO (09:37)
[2018-09-03] MEDS: ISOSORBIDE MONONITRATE(SR)60 MG TAB PO (09:38)
[2018-09-03] MEDS ORDERED: SOD CHLORIDE 0.9% 1,000 ML IV (11:30)
[2018-09-03] MEDS: SOD CHLORIDE 0.45% 1,000 ML IV (12:32)
[2018-09-03] MEDS: LEVOFLOXACIN 500MG/D5W (PMX) 100 ML IVPB (13:57)
[2018-09-03] MEDS: SOD FERRIC GLUC COMPLX 125 MG in SOD CHLORIDE 0.9% 100 ML IVPB (15:17)
[2018-09-03 18:23] LABS: CREATINE KINASE 37 IU/L (23-200)
[2018-09-03 18:37] LABS: CK INDEX 2.9; CK-MB 1.06 ng/ml (0.0-2.4)
[2018-09-03 23:20] LABS: AMPHETAMINE/METHAMPHETAMINE Negative (NEGATIVE); BARBITURATES Negative (NEGATIVE); BENZODIAZEPINES Negative (NEGATIVE); CANNABINOIDS Negative (NEGATIVE); COCAINE Positive (NEGATIVE); OPIATES Negative (NEGATIVE)
[2018-09-04] MEDS: LORAZEPAM 2 MG INJ IV ×2 (02:16→22:58)
[2018-09-04 05:00] LABS: ADD MAN DIFF? NO
[2018-09-04 05:08] LABS: BASOPHILS % 0.6 % (0.0-2.0); EOSINOPHILS # 0.1 10^3/ul (0.0-0.5); EOSINOPHILS % 1.2 % (0.0-7.0); HEMATOCRIT 28.4 % (37.0-47.0); HEMOGLOBIN 8.5 g/dl (12.0-16.0); LYMPHOCYTES # 0.8 10^3/ul (0.8-2.9); LYMPHOCYTES % 15.7 % (15.0-51.0); MEAN CORPUSCULAR HEMOGLOBIN 23.5 pg (29.0-33.0); MEAN CORPUSCULAR HGB CONC 29.9 g/dl (32.0-37.0); MEAN CORPUSCULAR VOLUME 78.7 fl (82.0-101.0); MEAN PLATELET VOLUME 10.1 fl (7.4-10.4); MONOCYTE # 0.5 10^3/ul (0.3-0.9); MONOCYTES % 10.5 % (0.0-11.0); NEUTROPHIL # 3.6 10^3/ul (1.6-7.5); NEUTROPHILS % 71.6 % (39.0-77.0); PLATELET COUNT 168 10^3/UL (140-415); RED BLOOD COUNT 3.61 10^6/ul (4.20-5.40); RED CELL DISTRIBUTION WIDTH 18.3 % (11.5-14.5)
[2018-09-04 05:27] LABS: ANION GAP 7 (5-13); BLOOD UREA NITROGEN 84 mg/dl (7-20); CALCIUM 8.1 mg/dl (8.4-10.2); CARBON DIOXIDE 22 mmol/L (21-31); CHLORIDE 109 mmol/L (97-110); CREATININE 5.28 mg/dl (0.44-1.00); Estimated GFR 10 mL/min (>60); GLUCOSE 95 mg/dl (70-220); POTASSIUM 4.3 mmol/L (3.5-5.1); SODIUM 138 mmol/L (135-144)
[2018-09-04] MEDS: PANTOPRAZOLE (EC) 40 MG TAB PO (05:34)
[2018-09-04] MEDS: ISOSORBIDE MONONITRATE(SR)60 MG TAB PO (09:04)
[2018-09-04] MEDS: NIFEdipine (XL) 30 MG TAB PO (09:05)
[2018-09-04] MEDS: CALCIUM ACETATE 667 MG CAP PO ×4 (09:07→18:55)
[2018-09-04] MEDS: HEPARIN 5,000 UNIT/1 ML VIAL SC ×2 (09:12→21:15)
[2018-09-04] MEDS: ONDANSETRON 4 MG INJ IV (09:31)
[2018-09-04] MEDS: SOD FERRIC GLUC COMPLX 125 MG in SOD CHLORIDE 0.9% 100 ML IVPB (13:28)
[2018-09-05] MEDS: LORAZEPAM 2 MG INJ IV (05:28)
[2018-09-05 05:51] LABS: ADD MAN DIFF? NO
[2018-09-05 05:55] LABS: BASOPHILS % 0.6 % (0.0-2.0); EOSINOPHILS # 0.1 10^3/ul (0.0-0.5); EOSINOPHILS % 1.5 % (0.0-7.0); HEMATOCRIT 29.2 % (37.0-47.0); HEMOGLOBIN 8.8 g/dl (12.0-16.0); LYMPHOCYTES # 0.7 10^3/ul (0.8-2.9); LYMPHOCYTES % 13.2 % (15.0-51.0); MEAN CORPUSCULAR HGB CONC 30.1 g/dl (32.0-37.0); MEAN CORPUSCULAR VOLUME 79.6 fl (82.0-101.0); MEAN PLATELET VOLUME 10.2 fl (7.4-10.4); MONOCYTE # 0.6 10^3/ul (0.3-0.9); MONOCYTES % 10.6 % (0.0-11.0); NEUTROPHIL # 3.8 10^3/ul (1.6-7.5); NEUTROPHILS % 73.5 % (39.0-77.0); PLATELET COUNT 218 10^3/UL (140-415); RED BLOOD COUNT 3.67 10^6/ul (4.20-5.40); RED CELL DISTRIBUTION WIDTH 18.5 % (11.5-14.5)
[2018-09-05 05:55] LABS: WHITE BLOOD COUNT 5.2 10^3/ul (4.8-10.8)
[2018-09-05] MEDS: morphine 2 MG INJ IV (06:14)
[2018-09-05 06:21] LABS: ANION GAP 12 (5-13); BLOOD UREA NITROGEN 74 mg/dl (7-20); CALCIUM 8.4 mg/dl (8.4-10.2); CARBON DIOXIDE 22 mmol/L (21-31); CHLORIDE 106 mmol/L (97-110); CREATININE 4.92 mg/dl (0.44-1.00); Estimated GFR 11 mL/min (>60); GLUCOSE 99 mg/dl (70-220); POTASSIUM 4.3 mmol/L (3.5-5.1); SODIUM 140 mmol/L (135-144)
[2018-09-05] MEDS: HEPARIN 5,000 UNIT/1 ML VIAL SC ×2 (09:32→20:43)
[2018-09-05] MEDS: ISOSORBIDE MONONITRATE(SR)60 MG TAB PO (09:45)
[2018-09-05] MEDS: CALCIUM ACETATE 667 MG CAP PO ×3 (09:45→18:38)
[2018-09-05] MEDS: NIFEdipine (XL) 30 MG TAB PO (09:45)
[2018-09-05 10:46] LABS: ADD UMIC YES; UR ASCORBIC ACID NEGATIVE (NEGATIVE); UR BACTERIA FEW /HPF (NONE SEEN); UR BILIRUBIN (Dip) NEGATIVE (NEGATIVE); UR BLOOD (Dip) 3+ mg/dL (NEGATIVE); UR CLARITY SLIGHTLY CLOUDY (CLEAR); UR COLOR YELLOW (YELLOW); UR GLUCOSE (Dip) NEGATIVE (NEGATIVE); UR KETONES (Dip) NEGATIVE (NEGATIVE); UR LEUKOCYTE ESTERASE (Dip) TRACE Leu/ul (NEGATIVE); UR NITRITE (Dip) NEGATIVE (NEGATIVE); UR RBC > 182 /HPF (0-5); UR SPECIFIC GRAVITY (Dip) 1.015 (1.003-1.030); UR TOTAL PROTEIN (Dip) 2+ mg/dl (NEGATIVE); UR UROBILINOGEN (Dip) NEGATIVE (NEGATIVE); UR WBC 11 /HPF (0-5)
[2018-09-05] MEDS: SOD FERRIC GLUC COMPLX 125 MG in SOD CHLORIDE 0.9% 100 ML IVPB (13:08)
[2018-09-05] MEDS: POLYETHYLENE GLYCOL 17 GM PACKET PO (14:15)
[2018-09-05 19:03] LABS: ADD UMIC YES; UR ASCORBIC ACID NEGATIVE (NEGATIVE); UR BACTERIA FEW /HPF (NONE SEEN); UR BILIRUBIN (Dip) NEGATIVE (NEGATIVE); UR BLOOD (Dip) 2+ mg/dL (NEGATIVE); UR CLARITY SLIGHTLY CLOUDY (CLEAR); UR COLOR YELLOW (YELLOW); UR GLUCOSE (Dip) NEGATIVE (NEGATIVE); UR KETONES (Dip) NEGATIVE (NEGATIVE); UR LEUKOCYTE ESTERASE (Dip) TRACE Leu/ul (NEGATIVE); UR MUCUS FEW /HPF (NONE SEEN); UR NITRITE (Dip) NEGATIVE (NEGATIVE); UR RBC 65 /HPF (0-5); UR SPECIFIC GRAVITY (Dip) 1.015 (1.003-1.030); UR TOTAL PROTEIN (Dip) 1+ mg/dl (NEGATIVE); UR UROBILINOGEN (Dip) NEGATIVE (NEGATIVE); UR WBC 5 /HPF (0-5)
[2018-09-05] MEDS ORDERED: ALBUTEROL/IPRATROPIUM (NEB) 3 ML AMP HHN (23:30)
[2018-09-05] MEDS: ALBUTEROL/IPRATROPIUM (NEB) 3 ML AMP HHN (23:45)
[2018-09-06] MEDS ORDERED: FUROSEMIDE 40 MG INJ IV (03:00)
[2018-09-06] MEDS: morphine 2 MG INJ IV ×2 (03:02→08:25)
[2018-09-06] MEDS: FUROSEMIDE 40 MG INJ IV (03:03)
[2018-09-06] MEDS ORDERED: ALBUTEROL/IPRATROPIUM (NEB) 3 ML AMP INH ×2 (03:30→04:00)
[2018-09-06 03:49] LABS: ADD MAN DIFF? NO
[2018-09-06 04:10] LABS: BASOPHILS % 0.5 % (0.0-2.0); EOSINOPHILS # 0.1 10^3/ul (0.0-0.5); EOSINOPHILS % 0.8 % (0.0-7.0); HEMATOCRIT 31.1 % (37.0-47.0); HEMOGLOBIN 9.1 g/dl (12.0-16.0); LYMPHOCYTES # 0.6 10^3/ul (0.8-2.9); LYMPHOCYTES % 10.6 % (15.0-51.0); MEAN CORPUSCULAR HEMOGLOBIN 23.5 pg (29.0-33.0); MEAN CORPUSCULAR HGB CONC 29.3 g/dl (32.0-37.0); MEAN CORPUSCULAR VOLUME 80.4 fl (82.0-101.0); MEAN PLATELET VOLUME 10.4 fl (7.4-10.4); MONOCYTE # 0.5 10^3/ul (0.3-0.9); MONOCYTES % 8.8 % (0.0-11.0); NEUTROPHIL # 4.7 10^3/ul (1.6-7.5); NEUTROPHILS % 78.6 % (39.0-77.0); PLATELET COUNT 241 10^3/UL (140-415); RED BLOOD COUNT 3.87 10^6/ul (4.20-5.40); RED CELL DISTRIBUTION WIDTH 19.1 % (11.5-14.5)
[2018-09-06 04:10] LABS: WHITE BLOOD COUNT 5.9 10^3/ul (4.8-10.8)
[2018-09-06 04:19] LABS: ANION GAP 10 (5-13); BLOOD UREA NITROGEN 68 mg/dl (7-20); CALCIUM 8.7 mg/dl (8.4-10.2); CARBON DIOXIDE 22 mmol/L (21-31); CHLORIDE 106 mmol/L (97-110); CREATININE 4.35 mg/dl (0.44-1.00); Estimated GFR 13 mL/min (>60); GLUCOSE 117 mg/dl (70-220); POTASSIUM 4.3 mmol/L (3.5-5.1); SODIUM 138 mmol/L (135-144)
[2018-09-06] MEDS: PANTOPRAZOLE (EC) 40 MG TAB PO (06:00)
[2018-09-06] MEDS ORDERED: HEPARIN 1000 UNITS/ML 10 ML INJ IV (07:30)
[2018-09-06] MEDS: ASPIRIN 325 MG TAB PO (07:30)
[2018-09-06] MEDS: NITROGLYCERIN (SL) 0.4 MG TAB SL (08:00)
[2018-09-06 08:31] LABS: ADD MAN DIFF? NO
[2018-09-06] MEDS: HEPARIN 25000 UNITS/250 ML 250 ML IV ×3 (08:39→23:16)
[2018-09-06 08:42] LABS: ABNORMAL IP MESSAGE 1; BASOPHILS % 0.5 % (0.0-2.0); EOSINOPHILS % 0.6 % (0.0-7.0); HEMATOCRIT 32.7 % (37.0-47.0); HEMOGLOBIN 9.8 g/dl (12.0-16.0); LYMPHOCYTES # 0.6 10^3/ul (0.8-2.9); LYMPHOCYTES % 9.7 % (15.0-51.0); MEAN CORPUSCULAR VOLUME 80.1 fl (82.0-101.0); MEAN PLATELET VOLUME 10.4 fl (7.4-10.4); MONOCYTE # 0.6 10^3/ul (0.3-0.9); MONOCYTES % 9.1 % (0.0-11.0); NEUTROPHIL # 5.2 10^3/ul (1.6-7.5); NEUTROPHILS % 79.3 % (39.0-77.0); PLATELET COUNT 158 10^3/UL (140-415); RED BLOOD COUNT 4.08 10^6/ul (4.20-5.40); RED CELL DISTRIBUTION WIDTH 19.2 % (11.5-14.5)
[2018-09-06 08:42] LABS: WHITE BLOOD COUNT 6.5 10^3/ul (4.8-10.8)
[2018-09-06 08:44] LABS: POSITIVE DIFF @See below
[2018-09-06 08:53] LABS: INR 1.08; PROTIME 14.1 Sec (11.9-14.9); PT RATIO 1.1
[2018-09-06 08:54] LABS: PARTIAL THROMBOPLASTIN TIME 44.2 Sec (23.0-35.0)
[2018-09-06] MEDS ORDERED: FUROSEMIDE 20 MG TAB PO (09:00)
[2018-09-06] MEDS ORDERED: PANTOPRAZOLE (EC) 40 MG TAB PO (09:00)
[2018-09-06] MEDS: HEPARIN 1000 UNITS/ML 10 ML INJ IV (09:04)
[2018-09-06] MEDS: CALCIUM ACETATE 667 MG CAP PO ×3 (09:19→18:16)
[2018-09-06] MEDS: ISOSORBIDE MONONITRATE(SR)60 MG TAB PO (09:20)
[2018-09-06] MEDS: POLYETHYLENE GLYCOL 17 GM PACKET PO (09:21)
[2018-09-06] MEDS: DOCUSATE SODIUM 100 MG CAP PO ×2 (09:23→20:51)
[2018-09-06] MEDS: ASPIRIN 81 MG TAB PO (09:23)
[2018-09-06] MEDS: METOPROLOL (XL) 50 MG TAB PO (10:25)
[2018-09-06] MEDS: NIFEdipine (XL) 30 MG TAB PO (10:25)
[2018-09-06] MEDS: ATORVASTATIN 80 MG TAB PO ×2 (10:26→20:51)
[2018-09-06 11:29] LABS: AMPHETAMINE/METHAMPHETAMINE Negative (NEGATIVE); BARBITURATES Negative (NEGATIVE); BENZODIAZEPINES Negative (NEGATIVE); CANNABINOIDS Negative (NEGATIVE); COCAINE Positive (NEGATIVE); OPIATES Positive (NEGATIVE)
[2018-09-06] MEDS: ONDANSETRON 4 MG INJ IV (12:32)
[2018-09-06] MEDS: HYDROCODONE/APAP (5/325) TAB PO (18:20)
[2018-09-06] MEDS: LORAZEPAM 2 MG INJ IV (21:28)
[2018-09-06 23:02] LABS: PARTIAL THROMBOPLASTIN TIME 56.9 Sec (23.0-35.0)
[2018-09-07] MEDS: LORAZEPAM 2 MG INJ IV ×2 (03:28→09:56)
[2018-09-07] MEDS: PANTOPRAZOLE (EC) 40 MG TAB PO (05:10)
[2018-09-07 06:27] LABS: ADD MAN DIFF? NO
[2018-09-07 06:33] LABS: BASOPHILS % 0.3 % (0.0-2.0); EOSINOPHILS % 0.3 % (0.0-7.0); HEMATOCRIT 30.2 % (37.0-47.0); LYMPHOCYTES # 0.8 10^3/ul (0.8-2.9); LYMPHOCYTES % 8.5 % (15.0-51.0); MEAN CORPUSCULAR HEMOGLOBIN 23.8 pg (29.0-33.0); MEAN CORPUSCULAR HGB CONC 29.8 g/dl (32.0-37.0); MEAN CORPUSCULAR VOLUME 79.9 fl (82.0-101.0); MEAN PLATELET VOLUME 10.4 fl (7.4-10.4); MONOCYTE # 0.9 10^3/ul (0.3-0.9); MONOCYTES % 8.9 % (0.0-11.0); NEUTROPHIL # 7.9 10^3/ul (1.6-7.5); NEUTROPHILS % 81.3 % (39.0-77.0); PLATELET COUNT 211 10^3/UL (140-415); RED BLOOD COUNT 3.78 10^6/ul (4.20-5.40); RED CELL DISTRIBUTION WIDTH 19.8 % (11.5-14.5)
[2018-09-07 06:33] LABS: WHITE BLOOD COUNT 9.7 10^3/ul (4.8-10.8)
[2018-09-07 06:49] LABS: PARTIAL THROMBOPLASTIN TIME 60.7 Sec (23.0-35.0)
[2018-09-07 07:06] LABS: ANION GAP 8 (5-13); BLOOD UREA NITROGEN 74 mg/dl (7-20); CALCIUM 8.7 mg/dl (8.4-10.2); CARBON DIOXIDE 21 mmol/L (21-31); CHLORIDE 109 mmol/L (97-110); CREATININE 4.81 mg/dl (0.44-1.00); Estimated GFR 11 mL/min (>60); GLUCOSE 108 mg/dl (70-220); POTASSIUM 4.9 mmol/L (3.5-5.1); SODIUM 138 mmol/L (135-144)
[2018-09-07] MEDS: METOPROLOL (XL) 50 MG TAB PO (09:00)
[2018-09-07] MEDS: DOCUSATE SODIUM 100 MG CAP PO ×2 (09:05→21:05)
[2018-09-07] MEDS: POLYETHYLENE GLYCOL 17 GM PACKET PO (09:06)
[2018-09-07] MEDS: ASPIRIN 81 MG TAB PO (09:08)
[2018-09-07] MEDS: CALCIUM ACETATE 667 MG CAP PO ×3 (09:08→17:30)
[2018-09-07] MEDS: NIFEdipine (XL) 30 MG TAB PO (09:10)
[2018-09-07] MEDS: ISOSORBIDE MONONITRATE(SR)60 MG TAB PO (09:11)
[2018-09-07 12:35] LABS: PARTIAL THROMBOPLASTIN TIME 57.5 Sec (23.0-35.0)
[2018-09-07] MEDS: FUROSEMIDE 40 MG INJ IV (15:09)
[2018-09-07] MEDS: HEPARIN 25000 UNITS/250 ML 250 ML IV ×2 (19:01→21:03)
[2018-09-07] MEDS: ACETAMINOPHEN 325 MG TAB PO (21:05)
[2018-09-07] MEDS: CLOPIDOGREL 75 MG TAB PO (21:05)
[2018-09-07] MEDS: ATORVASTATIN 80 MG TAB PO (21:05)
[2018-09-08] MEDS: LORAZEPAM 2 MG INJ IV ×3 (00:13→22:45)
[2018-09-08] MEDS: HEPARIN 25000 UNITS/250 ML 250 ML IV (04:27)
[2018-09-08] MEDS: PANTOPRAZOLE (EC) 40 MG TAB PO (06:28)
[2018-09-08] MEDS: POLYETHYLENE GLYCOL 17 GM PACKET PO (08:20)
[2018-09-08] MEDS: CALCIUM ACETATE 667 MG CAP PO ×3 (08:20→17:51)
[2018-09-08] MEDS: DOCUSATE SODIUM 100 MG CAP PO ×2 (08:20→21:00)
[2018-09-08] MEDS: CLOPIDOGREL 75 MG TAB PO (08:20)
[2018-09-08] MEDS: ASPIRIN 81 MG TAB PO (08:20)
[2018-09-08 09:02] LABS: ADD MAN DIFF? NO; BASOPHILS % 0.4 % (0.0-2.0); EOSINOPHILS # 0.1 10^3/ul (0.0-0.5); EOSINOPHILS % 0.7 % (0.0-7.0); HEMATOCRIT 30.3 % (37.0-47.0); HEMOGLOBIN 8.9 g/dl (12.0-16.0); LYMPHOCYTES % 12.2 % (15.0-51.0); MEAN CORPUSCULAR HEMOGLOBIN 23.9 pg (29.0-33.0); MEAN CORPUSCULAR HGB CONC 29.4 g/dl (32.0-37.0); MEAN CORPUSCULAR VOLUME 81.2 fl (82.0-101.0); MEAN PLATELET VOLUME 10.1 fl (7.4-10.4); MONOCYTE # 0.7 10^3/ul (0.3-0.9); MONOCYTES % 8.7 % (0.0-11.0); NEUTROPHIL # 6.2 10^3/ul (1.6-7.5); NEUTROPHILS % 77.1 % (39.0-77.0); PLATELET COUNT 188 10^3/UL (140-415); RED BLOOD COUNT 3.73 10^6/ul (4.20-5.40); RED CELL DISTRIBUTION WIDTH 20.2 % (11.5-14.5)
[2018-09-08 09:22] LABS: ANION GAP 7 (5-13); BLOOD UREA NITROGEN 83 mg/dl (7-20); CALCIUM 8.6 mg/dl (8.4-10.2); CARBON DIOXIDE 20 mmol/L (21-31); CHLORIDE 110 mmol/L (97-110); CREATININE 5.35 mg/dl (0.44-1.00); Estimated GFR 10 mL/min (>60); GLUCOSE 92 mg/dl (70-220); POTASSIUM 4.7 mmol/L (3.5-5.1); SODIUM 137 mmol/L (135-144)
[2018-09-08 09:35] LABS: MAGNESIUM 2.5 mg/dl (1.7-2.5)
[2018-09-08 09:35] LABS: PHOSPHORUS 6.2 mg/dl (2.5-4.9)
[2018-09-08 10:58] LABS: PARTIAL THROMBOPLASTIN TIME 23.3 Sec (23.0-35.0)
[2018-09-08] MEDS: LIDOCAINE 1% (MPF) 5 ML VIAL (17:26)
[2018-09-08] MEDS: ATORVASTATIN 80 MG TAB PO (21:00)
[2018-09-08] MEDS: morphine LIQ (10 MG/5 ML) CUP PO (22:15)
[2018-09-09] MEDS: PANTOPRAZOLE (EC) 40 MG TAB PO (05:21)
[2018-09-09] MEDS: morphine LIQ (10 MG/5 ML) CUP PO (05:21)
[2018-09-09 06:06] LABS: ADD MAN DIFF? NO
[2018-09-09 06:29] LABS: BASOPHILS % 0.5 % (0.0-2.0); EOSINOPHILS # 0.1 10^3/ul (0.0-0.5); EOSINOPHILS % 1.4 % (0.0-7.0); HEMATOCRIT 33.7 % (37.0-47.0); HEMOGLOBIN 10.1 g/dl (12.0-16.0); LYMPHOCYTES % 13.6 % (15.0-51.0); MEAN CORPUSCULAR HEMOGLOBIN 24.2 pg (29.0-33.0); MEAN CORPUSCULAR VOLUME 80.8 fl (82.0-101.0); MEAN PLATELET VOLUME 10.7 fl (7.4-10.4); MONOCYTE # 0.6 10^3/ul (0.3-0.9); MONOCYTES % 8.4 % (0.0-11.0); NEUTROPHIL # 5.6 10^3/ul (1.6-7.5); NEUTROPHILS % 75.6 % (39.0-77.0); PLATELET COUNT 204 10^3/UL (140-415); RED BLOOD COUNT 4.17 10^6/ul (4.20-5.40); RED CELL DISTRIBUTION WIDTH 20.8 % (11.5-14.5)
[2018-09-09 06:29] LABS: WHITE BLOOD COUNT 7.4 10^3/ul (4.8-10.8)
[2018-09-09 06:57] LABS: ANION GAP 8 (5-13); BLOOD UREA NITROGEN 80 mg/dl (7-20); CALCIUM 8.8 mg/dl (8.4-10.2); CARBON DIOXIDE 20 mmol/L (21-31); CHLORIDE 110 mmol/L (97-110); CREATININE 5.03 mg/dl (0.44-1.00); Estimated GFR 11 mL/min (>60); GLUCOSE 96 mg/dl (70-220); MAGNESIUM 2.6 mg/dl (1.7-2.5); POTASSIUM 4.5 mmol/L (3.5-5.1); SODIUM 138 mmol/L (135-144)
[2018-09-09 07:15] LABS: PHOSPHORUS 5.7 mg/dl (2.5-4.9)
[2018-09-09] MEDS: ASPIRIN 81 MG TAB PO (08:55)
[2018-09-09] MEDS: CALCIUM ACETATE 667 MG CAP PO ×3 (08:55→17:46)
[2018-09-09] MEDS: CLOPIDOGREL 75 MG TAB PO (08:55)
[2018-09-09] MEDS: POLYETHYLENE GLYCOL 17 GM PACKET PO (08:56)
[2018-09-09] MEDS: DOCUSATE SODIUM 100 MG CAP PO ×2 (08:56→20:34)
[2018-09-09] MEDS: LORAZEPAM 2 MG INJ IV (09:09)
[2018-09-09] MEDS: ONDANSETRON 4 MG INJ IV (18:46)
[2018-09-09] MEDS: ATORVASTATIN 80 MG TAB PO (20:34)
[2018-09-09] MEDS: HEPARIN 5,000 UNIT/1 ML VIAL SC (22:26)
[2018-09-10] MEDS: PANTOPRAZOLE (EC) 40 MG TAB PO (05:03)
[2018-09-10 05:54] LABS: ADD MAN DIFF? NO
[2018-09-10 06:02] LABS: WHITE BLOOD COUNT 5.2 10^3/ul (4.8-10.8)
[2018-09-10 06:02] LABS: BASOPHILS % 0.6 % (0.0-2.0); EOSINOPHILS # 0.1 10^3/ul (0.0-0.5); EOSINOPHILS % 1.7 % (0.0-7.0); HEMATOCRIT 34.8 % (37.0-47.0); HEMOGLOBIN 10.2 g/dl (12.0-16.0); LYMPHOCYTES # 0.8 10^3/ul (0.8-2.9); LYMPHOCYTES % 14.7 % (15.0-51.0); MEAN CORPUSCULAR HEMOGLOBIN 23.7 pg (29.0-33.0); MEAN CORPUSCULAR HGB CONC 29.3 g/dl (32.0-37.0); MEAN CORPUSCULAR VOLUME 80.7 fl (82.0-101.0); MEAN PLATELET VOLUME 9.9 fl (7.4-10.4); MONOCYTE # 0.5 10^3/ul (0.3-0.9); MONOCYTES % 9.2 % (0.0-11.0); NEUTROPHIL # 3.8 10^3/ul (1.6-7.5); PLATELET COUNT 253 10^3/UL (140-415); RED BLOOD COUNT 4.31 10^6/ul (4.20-5.40); RED CELL DISTRIBUTION WIDTH 20.3 % (11.5-14.5)
[2018-09-10 06:42] LABS: ANION GAP 10 (5-13); BLOOD UREA NITROGEN 78 mg/dl (7-20); CALCIUM 9.1 mg/dl (8.4-10.2); CARBON DIOXIDE 21 mmol/L (21-31); CHLORIDE 113 mmol/L (97-110); CREATININE 4.59 mg/dl (0.44-1.00); Estimated GFR 12 mL/min (>60); GLUCOSE 97 mg/dl (70-220); POTASSIUM 4.6 mmol/L (3.5-5.1); SODIUM 144 mmol/L (135-144)
[2018-09-10] MEDS: ONDANSETRON 4 MG INJ IV (07:58)
[2018-09-10] MEDS: CLOPIDOGREL 75 MG TAB PO (08:16)
[2018-09-10] MEDS: POLYETHYLENE GLYCOL 17 GM PACKET PO (08:16)
[2018-09-10] MEDS: DOCUSATE SODIUM 100 MG CAP PO ×2 (08:17→20:50)
[2018-09-10] MEDS: CALCIUM ACETATE 667 MG CAP PO ×3 (08:17→17:35)
[2018-09-10] MEDS: ASPIRIN 81 MG TAB PO (08:17)
[2018-09-10] MEDS: HEPARIN 5,000 UNIT/1 ML VIAL SC ×2 (08:27→20:55)
[2018-09-10] MEDS: morphine LIQ (10 MG/5 ML) CUP PO ×2 (10:40→22:55)
[2018-09-10] MEDS: ISOSORBIDE DINITRATE 5 MG TAB PO ×2 (13:53→20:49)
[2018-09-10] MEDS: ATORVASTATIN 80 MG TAB PO (20:50)
[2018-09-10] MEDS: LORAZEPAM 2 MG INJ IV (23:15)
[2018-09-10] MEDS: HALOPERIDOL 5 MG INJ IM (23:16)
[2018-09-11 05:54] LABS: ADD MAN DIFF? NO
[2018-09-11 06:03] LABS: BASOPHILS % 0.7 % (0.0-2.0); EOSINOPHILS # 0.1 10^3/ul (0.0-0.5); EOSINOPHILS % 1.9 % (0.0-7.0); HEMATOCRIT 30.2 % (37.0-47.0); HEMOGLOBIN 8.9 g/dl (12.0-16.0); LYMPHOCYTES # 1.1 10^3/ul (0.8-2.9); LYMPHOCYTES % 18.6 % (15.0-51.0); MEAN CORPUSCULAR HEMOGLOBIN 23.8 pg (29.0-33.0); MEAN CORPUSCULAR HGB CONC 29.5 g/dl (32.0-37.0); MEAN CORPUSCULAR VOLUME 80.7 fl (82.0-101.0); MEAN PLATELET VOLUME 10.1 fl (7.4-10.4); MONOCYTE # 0.7 10^3/ul (0.3-0.9); MONOCYTES % 11.5 % (0.0-11.0); NEUTROPHIL # 3.8 10^3/ul (1.6-7.5); NEUTROPHILS % 66.8 % (39.0-77.0); NUCLEATED RED BLOOD CELLS% 0.5 /100WBC (0.0-0.0); PLATELET COUNT 241 10^3/UL (140-415); RED BLOOD COUNT 3.74 10^6/ul (4.20-5.40); RED CELL DISTRIBUTION WIDTH 20.1 % (11.5-14.5)
[2018-09-11 06:03] LABS: WHITE BLOOD COUNT 5.7 10^3/ul (4.8-10.8)
[2018-09-11] MEDS: PANTOPRAZOLE (EC) 40 MG TAB PO (06:32)
[2018-09-11 06:48] LABS: PHOSPHORUS 5.1 mg/dl (2.5-4.9)
[2018-09-11 06:54] LABS: ANION GAP 7 (5-13); BLOOD UREA NITROGEN 70 mg/dl (7-20); CALCIUM 8.7 mg/dl (8.4-10.2); CARBON DIOXIDE 22 mmol/L (21-31); CHLORIDE 113 mmol/L (97-110); Estimated GFR 13 mL/min (>60); GLUCOSE 89 mg/dl (70-220); MAGNESIUM 2.6 mg/dl (1.7-2.5); POTASSIUM 4.5 mmol/L (3.5-5.1); SODIUM 142 mmol/L (135-144)
[2018-09-11] MEDS: ISOSORBIDE DINITRATE 5 MG TAB PO ×3 (09:22→21:36)
[2018-09-11] MEDS: DOCUSATE SODIUM 100 MG CAP PO ×2 (09:22→21:35)
[2018-09-11] MEDS: CLOPIDOGREL 75 MG TAB PO (09:22)
[2018-09-11] MEDS: ASPIRIN 81 MG TAB PO (09:22)
[2018-09-11] MEDS: CALCIUM ACETATE 667 MG CAP PO ×3 (09:23→18:05)
[2018-09-11] MEDS: POLYETHYLENE GLYCOL 17 GM PACKET PO (09:23)
[2018-09-11] MEDS: HEPARIN 5,000 UNIT/1 ML VIAL SC ×2 (09:29→21:47)
[2018-09-11] MEDS: ONDANSETRON 4 MG INJ IV (21:31)
[2018-09-11] MEDS: ATORVASTATIN 80 MG TAB PO (21:35)
[2018-09-11] MEDS: morphine LIQ (10 MG/5 ML) CUP PO (21:35)
[2018-09-12] MEDS: HALOPERIDOL 5 MG INJ IM ×2 (00:23→22:35)
[2018-09-12] MEDS: PANTOPRAZOLE (EC) 40 MG TAB PO (05:20)
[2018-09-12] MEDS: morphine LIQ (10 MG/5 ML) CUP PO (05:20)
[2018-09-12 06:26] LABS: ADD MAN DIFF? NO
[2018-09-12 06:35] LABS: WHITE BLOOD COUNT 4.2 10^3/ul (4.8-10.8)
[2018-09-12 06:35] LABS: BASOPHILS % 0.7 % (0.0-2.0); EOSINOPHILS # 0.1 10^3/ul (0.0-0.5); EOSINOPHILS % 1.7 % (0.0-7.0); HEMATOCRIT 30.8 % (37.0-47.0); HEMOGLOBIN 9.2 g/dl (12.0-16.0); LYMPHOCYTES # 0.8 10^3/ul (0.8-2.9); LYMPHOCYTES % 19.3 % (15.0-51.0); MEAN CORPUSCULAR HEMOGLOBIN 24.1 pg (29.0-33.0); MEAN CORPUSCULAR HGB CONC 29.9 g/dl (32.0-37.0); MEAN CORPUSCULAR VOLUME 80.8 fl (82.0-101.0); MEAN PLATELET VOLUME 9.8 fl (7.4-10.4); MONOCYTE # 0.5 10^3/ul (0.3-0.9); MONOCYTES % 11.6 % (0.0-11.0); NEUTROPHIL # 2.8 10^3/ul (1.6-7.5); NEUTROPHILS % 66.2 % (39.0-77.0); PLATELET COUNT 223 10^3/UL (140-415); RED BLOOD COUNT 3.81 10^6/ul (4.20-5.40); RED CELL DISTRIBUTION WIDTH 19.9 % (11.5-14.5)
[2018-09-12 08:18] LABS: ANION GAP 10 (5-13); BLOOD UREA NITROGEN 64 mg/dl (7-20); CALCIUM 9.1 mg/dl (8.4-10.2); CARBON DIOXIDE 23 mmol/L (21-31); CHLORIDE 113 mmol/L (97-110); CREATININE 3.89 mg/dl (0.44-1.00); Estimated GFR 14 mL/min (>60); GLUCOSE 84 mg/dl (70-220); POTASSIUM 4.4 mmol/L (3.5-5.1); SODIUM 146 mmol/L (135-144)
[2018-09-12] MEDS: CLOPIDOGREL 75 MG TAB PO (08:25)
[2018-09-12] MEDS: ISOSORBIDE DINITRATE 5 MG TAB PO ×3 (08:25→20:02)
[2018-09-12] MEDS: CALCIUM ACETATE 667 MG CAP PO ×3 (08:25→17:56)
[2018-09-12] MEDS: ASPIRIN 81 MG TAB PO (08:25)
[2018-09-12] MEDS: DOCUSATE SODIUM 100 MG CAP PO ×2 (08:25→20:02)
[2018-09-12] MEDS: POLYETHYLENE GLYCOL 17 GM PACKET PO (08:26)
[2018-09-12] MEDS: HEPARIN 5,000 UNIT/1 ML VIAL SC ×2 (08:31→20:10)
[2018-09-12] MEDS: ATORVASTATIN 80 MG TAB PO (20:02)
[2018-09-12] MEDS: hydrALAzine 20 MG INJ IV (22:06)
[2018-09-13] MEDS: PANTOPRAZOLE (EC) 40 MG TAB PO (06:00)
[2018-09-13 06:41] LABS: ADD MAN DIFF? NO
[2018-09-13 06:47] LABS: WHITE BLOOD COUNT 5.7 10^3/ul (4.8-10.8)
[2018-09-13 06:47] LABS: BASOPHIL # 0.1 10^3/ul (0.0-0.1); BASOPHILS % 0.9 % (0.0-2.0); EOSINOPHILS # 0.1 10^3/ul (0.0-0.5); EOSINOPHILS % 1.6 % (0.0-7.0); HEMATOCRIT 33.9 % (37.0-47.0); LYMPHOCYTES # 0.9 10^3/ul (0.8-2.9); MEAN CORPUSCULAR HEMOGLOBIN 23.7 pg (29.0-33.0); MEAN CORPUSCULAR HGB CONC 29.5 g/dl (32.0-37.0); MEAN CORPUSCULAR VOLUME 80.3 fl (82.0-101.0); MEAN PLATELET VOLUME 9.9 fl (7.4-10.4); MONOCYTE # 0.6 10^3/ul (0.3-0.9); MONOCYTES % 11.1 % (0.0-11.0); NEUTROPHILS % 70.9 % (39.0-77.0); PLATELET COUNT 233 10^3/UL (140-415); RED BLOOD COUNT 4.22 10^6/ul (4.20-5.40); RED CELL DISTRIBUTION WIDTH 19.8 % (11.5-14.5)
[2018-09-13 07:14] LABS: PHOSPHORUS 4.5 mg/dl (2.5-4.9)
[2018-09-13 07:22] LABS: ANION GAP 10 (5-13); BLOOD UREA NITROGEN 57 mg/dl (7-20); CALCIUM 9.5 mg/dl (8.4-10.2); CARBON DIOXIDE 23 mmol/L (21-31); CHLORIDE 111 mmol/L (97-110); CREATININE 3.84 mg/dl (0.44-1.00); Estimated GFR 14 mL/min (>60); GLUCOSE 86 mg/dl (70-220); MAGNESIUM 2.4 mg/dl (1.7-2.5); POTASSIUM 4.6 mmol/L (3.5-5.1); SODIUM 144 mmol/L (135-144)
[2018-09-13] MEDS: CLOPIDOGREL 75 MG TAB PO (08:59)
[2018-09-13] MEDS: POLYETHYLENE GLYCOL 17 GM PACKET PO (09:00)
[2018-09-13] MEDS: ASPIRIN 81 MG TAB PO (09:00)
[2018-09-13] MEDS: CALCIUM ACETATE 667 MG CAP PO ×3 (09:00→16:55)
[2018-09-13] MEDS: DOCUSATE SODIUM 100 MG CAP PO ×2 (09:00→20:16)
[2018-09-13] MEDS: ISOSORBIDE DINITRATE 5 MG TAB PO ×3 (09:11→20:16)
[2018-09-13] MEDS: HEPARIN 5,000 UNIT/1 ML VIAL SC ×2 (09:19→20:56)
[2018-09-13] MEDS: hydrALAzine 20 MG INJ IV (16:28)
[2018-09-13] MEDS: morphine LIQ (10 MG/5 ML) CUP PO ×2 (18:16→21:57)
[2018-09-13] MEDS: ATORVASTATIN 80 MG TAB PO (20:16)
[2018-09-14] MEDS: PANTOPRAZOLE (EC) 40 MG TAB PO (05:26)
[2018-09-14] MEDS: CALCIUM ACETATE 667 MG CAP PO ×2 (07:40→11:45)
[2018-09-14] MEDS: hydrALAzine 20 MG INJ IV ×2 (07:41→15:04)
[2018-09-14] MEDS: POLYETHYLENE GLYCOL 17 GM PACKET PO (09:04)
[2018-09-14] MEDS: ASPIRIN 81 MG TAB PO (09:05)
[2018-09-14] MEDS: DOCUSATE SODIUM 100 MG CAP PO (09:05)
[2018-09-14] MEDS: CLOPIDOGREL 75 MG TAB PO (09:05)
[2018-09-14] MEDS: ISOSORBIDE DINITRATE 5 MG TAB PO ×2 (09:10→11:46)
[2018-09-14] MEDS: HEPARIN 5,000 UNIT/1 ML VIAL SC (09:16)
[2018-09-14] MEDS ORDERED: ONDANSETRON INJ 8 MG in SOD CHLORIDE 0.9% 50 ML IV (12:30)
[2018-09-14] MEDS ORDERED: GUAIFENESIN 20 MG/ML 5ML CUP PO (12:30)
[2018-09-14] MEDS: TRIMETHOBENZAMIDE 100 MG/ML VIAL IM (12:56)
[2018-09-14] MEDS ORDERED: ONDANSETRON 4 MG INJ IV (13:30)
== END 2018-09-14 15:30 | disposition home or self-care (01) | DRG 280 ==
LOC: TEL 09-06 03:40 → MS1 09-02 14:04
PROVIDERS: Internal Medicine
PROC: 0W993ZX Drainage of Right Pleural Cavity, Percutaneous Approach, Diagnostic (ICD-10-PCS; principal; 2018-09-08)
DX: I13.0 Hypertensive heart and chronic kidney disease with heart failure and stage 1 through stage 4 chronic kidney disease, or unspecified chronic kidney disease (principal); N17.0 Acute kidney failure with tubular necrosis; I21.4 Non-ST elevation (NSTEMI) myocardial infarction; I50.33 Acute on chronic diastolic (congestive) heart failure; G92 Toxic encephalopathy; J90 Pleural effusion, not elsewhere classified; N28.1 Cyst of kidney, acquired; N18.3 Chronic kidney disease, stage 3 (moderate); J44.9 Chronic obstructive pulmonary disease, unspecified; B19.20 Unspecified viral hepatitis C without hepatic coma; J06.9 Acute upper respiratory infection, unspecified; F17.210 Nicotine dependence, cigarettes, uncomplicated; D63.1 Anemia in chronic kidney disease; E78.5 Hyperlipidemia, unspecified; F14.10 Cocaine abuse, uncomplicated; R41.0 Disorientation, unspecified; Z59.0 Homelessness; Z91.14 Patient's other noncompliance with medication regimen
CPT/HCPCS: 32555; 71045; 71250; 76604; 76775; 80048; 80061; 80307; 81001; 81003; 82550; 82553; 82570; 83036; 83540; 83735; 83970; 84100; 84155; 84300; 84439; 84443; 84484; 85025; 85610; 85730; 87086; 93005; 93306; 93976; 94640; 94664; 97110; 97116; 97162; 97164; 97166; 97168; 97530; 97535

== ENCOUNTER 2019-01-07 05:07 | Inpatient (IN) | payer OTHER ==
[2019-01-07] MEDS ORDERED: ALBUTEROL/IPRATROPIUM (NEB) 3 ML AMP INH (09:00)
[2019-01-07] MEDS ORDERED: GUAIFENESIN 20 MG/ML 5ML CUP PO (09:00)
[2019-01-07] MEDS ORDERED: ONDANSETRON 4 MG INJ IV (09:00)
[2019-01-07] MEDS ORDERED: VANCOMYCIN IV PER PHARMACY XX (09:00)
[2019-01-07] MEDS ORDERED: ACETAMINOPHEN 325 MG TAB PO (09:00)
[2019-01-07] MEDS ORDERED: HYDROCODONE/APAP (5/325) TAB PO ×2 (09:00)
[2019-01-07] MEDS ORDERED: NACL 0.9% 3 ML SYG IV (09:00)
[2019-01-07] MEDS ORDERED: ALBUTEROL/IPRATROPIUM (NEB) 3 ML AMP HHN (09:00)
[2019-01-07 11:02] LABS: ADD MAN DIFF? NO
[2019-01-07 11:04] LABS: WHITE BLOOD COUNT 7.6 10^3/ul (4.8-10.8)
[2019-01-07 11:04] LABS: BASOPHIL # 0.1 10^3/ul (0.0-0.1); BASOPHILS % 0.8 % (0.0-2.0); EOSINOPHILS # 0.3 10^3/ul (0.0-0.5); EOSINOPHILS % 3.4 % (0.0-7.0); HEMATOCRIT 35.8 % (37.0-47.0); HEMOGLOBIN 10.7 g/dl (12.0-16.0); LYMPHOCYTES # 0.8 10^3/ul (0.8-2.9); LYMPHOCYTES % 10.9 % (15.0-51.0); MEAN CORPUSCULAR HGB CONC 29.9 g/dl (32.0-37.0); MEAN CORPUSCULAR VOLUME 80.4 fl (82.0-101.0); MEAN PLATELET VOLUME 9.3 fl (7.4-10.4); MONOCYTE # 0.8 10^3/ul (0.3-0.9); MONOCYTES % 10.9 % (0.0-11.0); NEUTROPHIL # 5.6 10^3/ul (1.6-7.5); NEUTROPHILS % 73.6 % (39.0-77.0); PLATELET COUNT 306 10^3/UL (140-415); RED BLOOD COUNT 4.45 10^6/ul (4.20-5.40); RED CELL DISTRIBUTION WIDTH 16.8 % (11.5-14.5)
[2019-01-07 11:21] LABS: ALANINE AMINOTRANSFERASE 27 IU/L (13-69); ALBUMIN 2.5 g/dl (3.3-4.9); ALBUMIN/GLOBULIN RATIO 0.75; ALKALINE PHOSPHATASE 86 IU/L (42-121); ANION GAP 7 (5-13); ASPARTATE AMINO TRANSFERASE 26 IU/L (15-46); BILIRUBIN,INDIRECT 0.3 mg/dl (0-1.1); BILIRUBIN,TOTAL 0.3 mg/dl (0.2-1.3); BLOOD UREA NITROGEN 49 mg/dl (7-20); CARBON DIOXIDE 23 mmol/L (21-31); CHLORIDE 112 mmol/L (97-110); CREATININE 3.08 mg/dl (0.44-1.00); Estimated GFR 19 mL/min (>60); GLUCOSE 85 mg/dl (70-220); MAGNESIUM 2.2 mg/dl (1.7-2.5); PHOSPHORUS 4.6 mg/dl (2.5-4.9); POTASSIUM 3.5 mmol/L (3.5-5.1); SODIUM 142 mmol/L (135-144); TOTAL PROTEIN 5.8 g/dl (6.1-8.1)
[2019-01-07] MEDS: ISOSORBIDE DINITRATE 5 MG TAB PO ×2 (13:00→14:07)
[2019-01-07] MEDS: CEFEPIME 2GM/50 ML (PMX) 50 ML IVPB (13:58)
[2019-01-07] MEDS: VANCOMYCIN HCL 1.25 GM in SOD CHLORIDE 0.9% 250 ML IVPB (13:58)
[2019-01-07] MEDS: FLUTICASONE/VILANTEROL 100-25 INH (14:03)
[2019-01-07] MEDS: PANTOPRAZOLE (EC) 40 MG TAB PO (14:04)
[2019-01-07] MEDS: HEPARIN 5,000 UNIT/1 ML VIAL SC (14:05)
[2019-01-07] MEDS: CLOPIDOGREL 75 MG TAB PO (14:06)
[2019-01-07] MEDS: FUROSEMIDE 20 MG TAB PO (14:06)
[2019-01-07] MEDS: ASPIRIN 81 MG TAB PO (14:06)
[2019-01-07] MEDS: DOCUSATE SODIUM 100 MG CAP PO (14:07)
[2019-01-07] MEDS: TIOTROPIUM 18 MCG CAPSULE INHA DEV INH (14:08)
[2019-01-07] MEDS: CALCIUM ACETATE 667 MG CAP PO (14:09)
[2019-01-07] MEDS ORDERED: CLINDAMYCIN 150 MG CAP PO (16:30)
[2019-01-07] MEDS ORDERED: SILVER SULFADIAZINE 1% 25 GM CR TOP (21:00)
[2019-01-07] MEDS ORDERED: LACTOBACILLUS RHAMNOSUS CAP PO (21:00)
[2019-01-07] MEDS ORDERED: ATORVASTATIN 80 MG TAB PO (21:00)
[2019-01-08] MEDS ORDERED: CEFEPIME 1GM/50 ML (PMX) 50 ML IVPB (09:00)
[2019-01-09] MEDS ORDERED: VANCOMYCIN 1 GM 250 ML IVPB (12:00)
== END 2019-01-07 18:08 | disposition home or self-care (01) | DRG 603 ==
LOC: PP2 05:07
DX: L03.317 Cellulitis of buttock (principal); F14.10 Cocaine abuse, uncomplicated; D64.9 Anemia, unspecified; I12.9 Hypertensive chronic kidney disease with stage 1 through stage 4 chronic kidney disease, or unspecified chronic kidney disease; N18.9 Chronic kidney disease, unspecified
CPT/HCPCS: 80053; 83735; 84100; 85025

== ENCOUNTER 2019-02-06 03:35 | Inpatient (IN) | payer OTHER ==
[2019-02-06] MEDS ORDERED: LORAZEPAM 0.5 MG TAB PO (04:30)
[2019-02-06] MEDS ORDERED: ONDANSETRON 4 MG INJ IV (04:30)
[2019-02-06] MEDS ORDERED: ACETAMINOPHEN 325 MG TAB PO (04:30)
[2019-02-06] MEDS ORDERED: NACL 0.9% 3 ML SYG IV (04:30)
[2019-02-06] MEDS ORDERED: morphine 2 MG INJ IV (04:30)
[2019-02-06] MEDS ORDERED: BISACODYL (EC) 5 MG TAB PO (04:30)
[2019-02-06] MEDS ORDERED: DOCUSATE SODIUM 100 MG CAP PO (04:30)
[2019-02-06 05:30] LABS: ADD MAN DIFF? NO
[2019-02-06] MEDS: METOLAZONE 2.5 MG TAB PO (05:41)
[2019-02-06] MEDS: BUMETANIDE 1 MG INJ IV (05:44)
[2019-02-06] MEDS: HEPARIN 5,000 UNIT/1 ML VIAL SC ×2 (05:48→20:59)
[2019-02-06 05:57] LABS: BASOPHIL # 0.1 10^3/ul (0.0-0.1); BASOPHILS % 0.8 % (0.0-2.0); EOSINOPHILS # 0.2 10^3/ul (0.0-0.5); EOSINOPHILS % 3.8 % (0.0-7.0); HEMATOCRIT 36.3 % (37.0-47.0); HEMOGLOBIN 10.8 g/dl (12.0-16.0); LYMPHOCYTES # 0.9 10^3/ul (0.8-2.9); LYMPHOCYTES % 15.3 % (15.0-51.0); MEAN CORPUSCULAR HEMOGLOBIN 23.7 pg (29.0-33.0); MEAN CORPUSCULAR HGB CONC 29.8 g/dl (32.0-37.0); MEAN CORPUSCULAR VOLUME 79.8 fl (82.0-101.0); MEAN PLATELET VOLUME 9.9 fl (7.4-10.4); MONOCYTE # 0.6 10^3/ul (0.3-0.9); MONOCYTES % 10.5 % (0.0-11.0); NEUTROPHIL # 4.1 10^3/ul (1.6-7.5); NEUTROPHILS % 69.1 % (39.0-77.0); PLATELET COUNT 285 10^3/UL (140-415); RED BLOOD COUNT 4.55 10^6/ul (4.20-5.40); RED CELL DISTRIBUTION WIDTH 17.4 % (11.5-14.5)
[2019-02-06 06:05] LABS: ALANINE AMINOTRANSFERASE 19 IU/L (13-69); ALBUMIN 2.3 g/dl (3.3-4.9); ALBUMIN/GLOBULIN RATIO 0.88; ALKALINE PHOSPHATASE 68 IU/L (42-121); ANION GAP 5 (5-13); ASPARTATE AMINO TRANSFERASE 22 IU/L (15-46); BILIRUBIN,INDIRECT 0.3 mg/dl (0-1.1); BILIRUBIN,TOTAL 0.3 mg/dl (0.2-1.3); BLOOD UREA NITROGEN 48 mg/dl (7-20); CALCIUM 7.9 mg/dl (8.4-10.2); CARBON DIOXIDE 25 mmol/L (21-31); CHLORIDE 112 mmol/L (97-110); CHOL/HDL RATIO 4.7 RATIO; CHOLESTEROL 182 mg/dl (100-200); CREATININE 3.32 mg/dl (0.44-1.00); Estimated GFR 17 mL/min (>60); GLUCOSE 120 mg/dl (70-220); HDL CHOLESTEROL 38 mg/dl (35-98); LDL CHOLESTEROL,CALCULATED 131 mg/dl; MAGNESIUM 2.1 mg/dl (1.7-2.5); POTASSIUM 3.3 mmol/L (3.5-5.1); SODIUM 142 mmol/L (135-144); TOTAL PROTEIN 4.9 g/dl (6.1-8.1); TRIGLYCERIDES 66 mg/dl (0-149)
[2019-02-06 06:10] LABS: INR 1.07; PT RATIO 1.1
[2019-02-06 06:11] LABS: PARTIAL THROMBOPLASTIN TIME 40.9 Sec (23.0-35.0)
[2019-02-06 06:11] LABS: ETHANOL < 10.0 mg/dl (0-0)
[2019-02-06] MEDS: POTASSIUM CHLORIDE (SR) 20 MEQ TAB PO ×2 (06:54→14:21)
[2019-02-06 07:39] LABS: HEMOGLOBIN A1C 5.8 % (0-5.9)
[2019-02-06] MEDS ORDERED: ALBUTEROL/IPRATROPIUM (NEB) 3 ML AMP INH (12:00)
[2019-02-06] MEDS: CALCIUM ACETATE 667 MG CAP PO ×2 (12:29→17:18)
[2019-02-06] MEDS: ISOSORBIDE DINITRATE 5 MG TAB PO ×2 (14:22→20:50)
[2019-02-06] MEDS: FUROSEMIDE 40 MG INJ IV ×2 (14:24→17:19)
[2019-02-06 16:06] LABS: ADD UMIC NO; UR ASCORBIC ACID NEGATIVE (NEGATIVE); UR BILIRUBIN (Dip) NEGATIVE (NEGATIVE); UR BLOOD (Dip) NEGATIVE (NEGATIVE); UR CLARITY CLEAR (CLEAR); UR COLOR STRAW (YELLOW); UR GLUCOSE (Dip) NEGATIVE (NEGATIVE); UR KETONES (Dip) NEGATIVE (NEGATIVE); UR LEUKOCYTE ESTERASE (Dip) NEGATIVE Leu/ul (NEGATIVE); UR NITRITE (Dip) NEGATIVE (NEGATIVE); UR SPECIFIC GRAVITY (Dip) 1.005 (1.003-1.030); UR TOTAL PROTEIN (Dip) NEGATIVE (NEGATIVE); UR UROBILINOGEN (Dip) NEGATIVE (NEGATIVE)
[2019-02-06 16:34] LABS: AMPHETAMINE/METHAMPHETAMINE NEGATIVE (NEGATIVE); BARBITURATES NEGATIVE (NEGATIVE); BENZODIAZEPINES NEGATIVE (NEGATIVE); CANNABINOIDS NEGATIVE (NEGATIVE); COCAINE POSITIVE (NEGATIVE); OPIATES NEGATIVE (NEGATIVE)
[2019-02-06] MEDS: DOCUSATE SODIUM 100 MG CAP PO (17:18)
[2019-02-06] MEDS: ATORVASTATIN 80 MG TAB PO (20:49)
[2019-02-06] MEDS: NITROGLYCERIN (SL) 0.4 MG TAB SL ×2 (21:37→21:44)
[2019-02-06] MEDS: LORAZEPAM 2 MG INJ IV (22:05)
[2019-02-06 23:17] LABS: TROPONIN-I < 0.012 ng/ml (0.000-0.120)
[2019-02-07 05:24] LABS: ADD MAN DIFF? NO
[2019-02-07 05:30] LABS: BASOPHIL # 0.1 10^3/ul (0.0-0.1); BASOPHILS % 1.1 % (0.0-2.0); EOSINOPHILS # 0.2 10^3/ul (0.0-0.5); EOSINOPHILS % 4.5 % (0.0-7.0); HEMATOCRIT 32.4 % (37.0-47.0); HEMOGLOBIN 9.7 g/dl (12.0-16.0); LYMPHOCYTES # 0.9 10^3/ul (0.8-2.9); LYMPHOCYTES % 20.2 % (15.0-51.0); MEAN CORPUSCULAR HEMOGLOBIN 23.5 pg (29.0-33.0); MEAN CORPUSCULAR HGB CONC 29.9 g/dl (32.0-37.0); MEAN CORPUSCULAR VOLUME 78.6 fl (82.0-101.0); MEAN PLATELET VOLUME 9.7 fl (7.4-10.4); MONOCYTE # 0.5 10^3/ul (0.3-0.9); MONOCYTES % 11.2 % (0.0-11.0); NEUTROPHIL # 2.8 10^3/ul (1.6-7.5); NEUTROPHILS % 62.6 % (39.0-77.0); PLATELET COUNT 310 10^3/UL (140-415); RED BLOOD COUNT 4.12 10^6/ul (4.20-5.40); RED CELL DISTRIBUTION WIDTH 17.3 % (11.5-14.5)
[2019-02-07 05:30] LABS: WHITE BLOOD COUNT 4.5 10^3/ul (4.8-10.8)
[2019-02-07] MEDS: DOCUSATE SODIUM 100 MG CAP PO (05:37)
[2019-02-07] MEDS: FUROSEMIDE 40 MG INJ IV (05:37)
[2019-02-07 05:53] LABS: ALANINE AMINOTRANSFERASE 16 IU/L (13-69); ALBUMIN 2.1 g/dl (3.3-4.9); ALBUMIN/GLOBULIN RATIO 0.72; ALKALINE PHOSPHATASE 64 IU/L (42-121); ANION GAP 3 (5-13); ASPARTATE AMINO TRANSFERASE 18 IU/L (15-46); BILIRUBIN,INDIRECT 0.3 mg/dl (0-1.1); BILIRUBIN,TOTAL 0.3 mg/dl (0.2-1.3); BLOOD UREA NITROGEN 49 mg/dl (7-20); CARBON DIOXIDE 28 mmol/L (21-31); CHLORIDE 112 mmol/L (97-110); CREATININE 3.25 mg/dl (0.44-1.00); Estimated GFR 18 mL/min (>60); GLUCOSE 90 mg/dl (70-220); POTASSIUM 3.8 mmol/L (3.5-5.1); SODIUM 143 mmol/L (135-144)
[2019-02-07 05:54] LABS: MAGNESIUM 2.1 mg/dl (1.7-2.5)
[2019-02-07 05:54] LABS: PHOSPHORUS 4.6 mg/dl (2.5-4.9)
[2019-02-07 06:03] LABS: TROPONIN-I 0.015 ng/ml (0.000-0.120)
[2019-02-07] MEDS: CLOPIDOGREL 75 MG TAB PO (08:22)
[2019-02-07] MEDS: CALCIUM ACETATE 667 MG CAP PO ×2 (08:22→12:22)
[2019-02-07] MEDS: ASPIRIN 81 MG TAB PO (08:23)
[2019-02-07] MEDS: ISOSORBIDE DINITRATE 5 MG TAB PO (08:23)
[2019-02-07] MEDS: PANTOPRAZOLE (EC) 40 MG TAB PO (08:24)
[2019-02-07] MEDS: AMLODIPINE 10 MG TAB PO (08:25)
[2019-02-07] MEDS: TIOTROPIUM 18 MCG CAPSULE INHA DEV INH (08:26)
[2019-02-07] MEDS: FLUTICASONE/VILANTEROL 100-25 INH (08:29)
[2019-02-07] MEDS: HEPARIN 5,000 UNIT/1 ML VIAL SC (10:27)
[2019-02-07] MEDS: METOLAZONE 5 MG TAB PO (12:21)
== END 2019-02-07 16:23 | disposition home or self-care (01) | DRG 291 ==
LOC: 6WM 03:35
PROVIDERS: Family Medicine
DX: I13.0 Hypertensive heart and chronic kidney disease with heart failure and stage 1 through stage 4 chronic kidney disease, or unspecified chronic kidney disease (principal); I50.33 Acute on chronic diastolic (congestive) heart failure; N18.4 Chronic kidney disease, stage 4 (severe); Z72.0 Tobacco use; F15.10 Other stimulant abuse, uncomplicated; K21.9 Gastro-esophageal reflux disease without esophagitis; E87.6 Hypokalemia
CPT/HCPCS: 71045; 76775; 80053; 80061; 80307; 81003; 83036; 83735; 84100; 84443; 84484; 85025; 85610; 85730; 87081; 93005